=== PATIENT | female | born 1950 | race Caucasian/White ===

== ENCOUNTER 2017-04-26 11:41 | Inpatient (IN) | payer OTHER, MEDICAID ==
[~2017-04-26] VITALS: Ht 165.1 cm; Wt 162.1 kg
[2017-04-26] VITALS (8 sets, daily range): BP systolic 105–123; BP diastolic 59–66; PULSE 78–113; RESP 18–33; O2SAT 94–100
[~2017-04-26 11:41] MED LIST: ALBU8.5H2 INHALATION; AMLO5TAB2 PO; ATOR20TA PO; BECL8.7A6 IH; DIPH50C PO; DOCU250C2 PO; FLUT15.88 NS; GABA600T2 PO; INSU100I18 SUBQ; INSU100V7 SUBQ; LEVO750T39 PO; LISI10TA PO; MONT10TA23 PO; NORT50CA PO; OMEP20CA11 PO; RES15 PO; [UNRECOGNIZED DRUG - REMARK] PO
[2017-04-26] MEDS ORDERED: Polyethylene Glycol (PEG) 17 Gm Powder PO PRN (14:55)
[2017-04-26] MEDS ORDERED: Alum-Mag Hydrox-Simeth 30 mL Suspension PO PRN (14:55)
[2017-04-26] MEDS ORDERED: Dextrose 10% 250 ML IV PRN (15:05)
[2017-04-26] MEDS ORDERED: Glucose 40% Oral Gel 15 Gm Tube PO PRN (15:05)
[2017-04-26] MEDS ORDERED: Albuterol HFA 60 Puff 8 Gm Inhaler INHALATION PRN (15:05)
[2017-04-26] MEDS ORDERED: diphenhydrAMINE 25 mg Capsule PO PRN (15:05)
--- NOTE | 2017-04-26 15:10 | NUR ---
Admit Pt admitted to [facility] from [facility] at 1400. Vitals stable, A&Ox2, unknown date. All belongings brought with with the exception of dentures and glasses, pt states she had them at [facility] but they are not here with her belongings. Pt answers some questions appropriately but other questions she wont answer and seems to drift off. Tele placed and in NSR 80's. C/O back pain but tolerable. Multiple skin issues noted. MD's rounding and asked me to SL patient. PT unable to help much during transfer, took about 4 ppl to move her from the stretcher to the bed. Pt very fidgety in bed and unable to stay still. Admit completed but unsure of some of her answers. Will go over the admit if family shows up.
[2017-04-26] MEDS ORDERED: Albuterol-Ipratropium 3 mL Inhalation Solution NEB PRN (15:20)
--- NOTE | 2017-04-26 15:43 | ABG ---
DateTimeAnalyzed 15:36:03 -_ pH ____7.272 - 7.350 7.450 pCO2 ___75.8__ -mmHg 35.0 45.0 pO2 ___85.0__ -mmHg 69.0 116 HCO3- ___34.9__ -mmol/L 22.0 26.0 ABE ____7.2__ -mmol/L tHb ___11.0__ -g/dL O2Hb ___95.2__ -% COHb ____2.3__ -% 1.5 MetHb ____0.0__ -% sO2 ___97.4__ -% FIO2 ___21.0__ -% Drawn By btl - Date/Time Notified____ 15:42:00 -_ Liter_Flow ____2.00_ -L/min Oxygen Device 1 __CANNULA - Notified By btl - Notified Whom ___Dr. Mai - K+ ____6.4__ -mmol/L tO2 ___14.9__ -Vol% Napoleon test N/A -
[2017-04-26 16:05] LABS: BASOPHILS % (AUTO) 0.3 % (0-3); EOSINOPHILS % (AUTO) 2.8 % (0-5); MONOCYTES % (AUTO) 9.3 % (4-12); Mean Corpuscular Hemoglobin 27.8 pg (27.0-35.0); Mean Corpuscular Volume 94.5 fL (81-100); NEUTROPHILS % (AUTO) 72.5 % (40-74); Platelet Count 392 bil/L (150-400)
[2017-04-26 16:18] LABS: INR 1.06 ratio
[2017-04-26 16:26] LABS: Magnesium 1.7 mg/dL (1.6-2.6)
[2017-04-26] MEDS: Insulin Human REGular 300 Unit/3 mL Inj IV ONE ×2 (16:40→23:07)
[2017-04-26] MEDS ORDERED: Calcium GLUCO 10% (mEq) Inj 9.3 MEQ in Dextrose 5% 100 ML IV ONE (16:40)
[2017-04-26] MEDS ORDERED: DEXTROSE 10% IV ONE (16:40)
--- NOTE | 2017-04-26 16:46 | PCM.HPMED ---
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 The patient herself arrives acutely altered with poor recollection of recent events and provides very little useful history. Per HPI on transfer the patient was feeling gradually more fatigued in the days leading up to her admission on 04/24 when she fell resulting in upper extremity and chest abrasion and a deep abrasion of the right knee. Records from [facility] indicate that her Potassium upon presentation was 6.2 which decreased to 5.9 with medical therapy, only to rise again to 6.5 the following; which along with JAE with Cr 1.5 prompted them to request transfer to [facility] for further management. Of note the patient was noted to have a history of CHF with increased LE edema compare to baseline with respiratory difficulty, however she was maintained on NS @ 100 ml/hr with concurrent adequate PO intake of fluids and her diuretic was withheld; in addition the patient was anti-coagulated with Lovenox despite her super obesity and JAE. Review of Systems: Comprehensive ROS negative except as listed above in the HPI Allergies Coded Allergies: Penicillins (Verified Allergy, Severe, Anaphylaxis, 01/15/16) AFTER PCN SHOT CHILD morphine (Unverified Allergy, Intermediate, itching , 01/16/16) codeine (Verified Adverse Reaction, Intermediate, Itching, 01/15/16) Home Medications Unconfirmed Amlodipine 5 mg po Daily Lipitor 20 mg PO HS Beclomethasone 8.7 g IH daily PRN Insulin Lantus 85 U subQ HS Insulin Aspart 10 U subQ with meals with concurrent sliding scale Pamelor 50 mg PO hs Singulair 10 mg tablet PO daily Aspirin 81 mg PO daily Duloxetine 250 mg PO BID PRN Tylenol 650 mg PO Q6 PRN Albuterol 2 puffs inh Q4 PRN Lisinopril 10 mg PO daily . PMH Asthma Hyperlipidemia HTN GERD Super morbid obesity DM2 with neuropathy RBBB Osteo arthritis obesity hypoventilation syndrome Family History Father of [place] age 58 Mother of brain bleed 47 Lives with her sister who is relatively healthy Social History Hx Alcohol Use: Yes (quit 30 years ago) Hx Substance Use: No Hx Tobacco Use: Yes (quit 30 years ago) Smoking Status: Former Smoker Living Arrangement: with Family Exam Vital Signs Vital Sign - Last Date Time Temp Pulse Resp B/P Pulse Ox O2 Delivery O2 Flow Rate FiO2 04/26/17 14:25 85 Exam Gen: Patient somnolent and oriented only to self, morbidly obese Neck: Large Bull neck, difficult to determine JVD given habitus, supple, non tender, no lymphadenopathy HEENT: PERRL, EOMI, no scleral icterus, no conjunctival pallor, mucous membranes moist Skin: multiple bruises and abrasions, all appear to be in similar stages of healing implying a singular event, large eschar over right knee with some surrounding erythema CV: very distant heart tones, RRR, 2/6 systolic ejection murmur, no rubs or gallops Lungs: Very distant lung sounds, perhaps bibasilar crackles but difficult to be sure given habitus and inability to turn to posterior auscultation Abdomen: Soft, very obese, non tender, cannot appreciate bowel tones complicated by habitus, erythema and white exudate under prodigious panniculus Extr: BL LE non pitting edema, as above many abrasion in similar stages of healing Neuro: CN 2-12 grossly intact, no focal neurologic deficit, patient is altered Psych: Patient with flat affect and somnolence Assessment & Plan Adilia Garcia is a 66 year old super morbid obese woman presenting as a direct admission from [facility] for hyperkalemia, JAE, and likely CHF exacerbation. Upon presentation she is acutely altered with ABG revealing respiratory acidosis likely secondary to obesity hypoventilation syndrome with underlying asthma. There was some suggestion of chest pain upon presentation, [facility], ECG reassuring per [facility] records. Acute encephalopathy, poa. Active -Likely secondary to hypercapnic respiratory failure likely -ABG as above -Initiate Bpap to respiratory support -Will contact family to establish cognitive baseline -Swallow evaluation Acute hypercapnic respiratory failure, POA, acute on chronic. Active -As above likely secondary to pickwikian physiology -Bpap as above -Continue to monitor saturation -DuoNeb Q4 PRN COPD, POA, chronic. Active -Duoneb as above -Montelukast 10 mg PO daily -Bpap as above Hyperkalemia, POA, chronicity uncertain. Active -Kayexalate -Calcium gluconate -Insulin IV and D10 -Repeat BMP Q4 -Lasix as above will encourage K excretion -Consider Nephrology consult if electrolytes fail to improve Heart failure with preserved ejection fraction, POA, chronic. Active -Lasix 40 mg IV BID -Stopped IV fluids running on transfer -Recent ECHO reveals EF 55%, no wall motion abnormalities, no valvular pathology , diastolic dysfunction Diabetes mellitus with peripheral neuropathy, POA, chronic. Active -Lantus 85 U QHS home dosage reduced to 70 U QHS due to likely greatly reduced PO intake -Lispro 10U with meals -Lispro medium dose sliding scale -A1c 7.2 per [place] records -Gabapentin 600 mg PO tid Acute Kidney injury, POA. Active -Avoid Nephrotoxic medications -Continue to track BUN/Cr -Continue to monitor electrolytes Super Morbid Obesity, POA, chronic. Active -Bariatric bed -Jose lift -Multiple person assist for any turns, moves, lifts, or transfers -Nystatin powder under panniculus -Diphenhydramine 50 mg PO PRN for itching HTN, POA, Chronic. Active -Lisinopril 10 mg PO daily begin tomorrow AM -Amlodipine 5 mg PO daily Begin tomorrow AM -Lasix as above Depression and anxiety, POA, chronic. Active -Continue home Nortriptyline 50 mg PO hs -Continue home Temazepam 15 mg PO HS PRN GERD, POA, chronic. Active -Protonix 40 mg PO BID Multiple bruises and abrasions, POA, acute. Active -Multiple bruises and abrasions appear to be at roughly similar stages of healing suggestive of a singular trauma consistent with history of fall -Neosporin applied to open abrasion -Continue to observe large eschar on Right knee with low threshold to start antibiotics Disposition: Inpatient, anticipated length of stay > 2 midnights due to severity of condition and complexity of treatment plan Pain Evaluation: Adequate Pain Control GI Prophylaxis: H2 abraham VTE Prophylaxis: Sub-Q Heparin (Unfractionated) Resuscitation Status: CPR: Attempt Resuscitation Attending Statement The patient was seen and examined together with Dr. Mai on 04/26/2017 and I agree with the history, exam and plan as outlined in the note above. . copies to: Sheyla Rosario David E DO Apr 26, 2017 15:24 Fernie Mishra MD Apr 27, 2017 16:33
--- NOTE | 2017-04-26 16:57 | NUR ---
Respiratory Called to room to do a breathing Tx, found Pt had removed BIPAP mask. Pt is refusing to use bipap. Still says "I can't breath". RT tried to explain what bipap is and what the next step, intubation is and if she would like that to happen. No meaningful response was given. Pt does not seem to be a reliable source of information at this time. Rt tried again during note to get Pt to wear bipap, again refused.
[2017-04-26] MEDS: Insulin LISPRO 300 Unit/3 mL Inj SUBQ SCH ×3 (17:00→21:50)
[2017-04-26] MEDS: Furosemide 10 mg/mL 4 mL Inj IVPUSH SCH (17:21)
[2017-04-26] MEDS: Heparin 5,000 Unit/mL Inj SUBQ SCH ×2 (17:21→23:11)
[2017-04-26] MEDS: Nystatin 100,000 Unit/Gm 15 Gm Powder TOPICAL SCH ×2 (17:27→20:30)
[2017-04-26] MEDS: Neomycin-Bacitracin-Polymyxin 15 Gm Ointment TOPICAL SCH (19:33)
--- NOTE | 2017-04-26 19:37 | DRSVH ---
PROCEDURE: X-RAY CHEST ONE VIEW, PORTABLE ([id number]) INDICATIONS: CONGESTIVE HEART FAILURE TECHNIQUE: One view of the chest was acquired. COMPARISON: [facility], CR, XR CHEST 1VW (PORTABLE), 01/15/2016, 19:24. [facility], CT, CT ANGIO CHEST PE, 01/15/2016, 22:44. FINDINGS: Surgical changes and devices: None. Lungs and pleura: No pleural effusions or pneumothorax. Lungs are abnormal with reduced inspiratory volume. Suspect mild pulmonary edema. Mediastinum: Mediastinal contours appear abnormal with prominence of the central pulmonary vessels a s was previously the case. Heart size is normal. Bones and chest wall: No suspicious bony lesions. Overlying soft tissues appear unremarkable. IMPRESSION: Large body habitus reduced inspiratory volume, prominence of the central pulmonary vesse ls. A definite acute disease is not found. Quality of visualization, however, is relatively limited . Suspect mild pulmonary edema. Dictated by: Jonathan Lambert M.D. on 04/26/2017 at 19:34 Approved by: Jonathan Lambert M.D. on 04/26/2017 at 19:36
[2017-04-26] MEDS: Fluticasone 100 mCg Inhaler INHALATION SCH (20:29)
[2017-04-26] MEDS: Albuterol 2.5 mg/3 mL Inhalation Solution NEB SCH (20:30)
[2017-04-26] MEDS ORDERED: Insulin GLARgine 100 Unit/mL Syringe SUBQ SCH (21:00)
[2017-04-26] MEDS ORDERED: Albuterol 0.5% (5mg/mL) 20 mL Inhalation Solution NEB ONE (21:00)
[2017-04-27] VITALS (11 sets, daily range): BP systolic 115–143; BP diastolic 65–85; PULSE 85–105; RESP 16–20; O2SAT 90–99
[2017-04-27] MEDS: Albuterol 2.5 mg/3 mL Inhalation Solution NEB SCH ×2 (00:21→04:43)
--- NOTE | 2017-04-27 04:49 | NUR ---
Restless / Anxious / Hypoglycemia / Bi-PAP / Tele Pt very restless, figity and impulsive, Pt pulling Bi-PAP mask off frequently. MD notified and no new orders at this time, no sitter available. Blood glucose at HS was 134, MD called before giving HS dose of Lantus 70 units administered. IV D10W infusing at 10 mls /hour. AM blood glucose check was 42, one Amp D50 given, and follow up blood glucose was 120, MD is aware . Bi-PAP started out at 50% O2 and was able to be weaned down to 35% O2 this AM with O2 sats 94-95% per continuous pulse oximetry. No c/o chest pain, Tele SR-ST with IVCD and occ PVCs, with HR 80s to 110s overnight.
[2017-04-27 05:32] LABS: BASOPHILS % (AUTO) 0.1 % (0-3); EOSINOPHILS % (AUTO) 3.4 % (0-5); MONOCYTES % (AUTO) 11.4 % (4-12); Mean Corpuscular Hemoglobin 27.5 pg (27.0-35.0); Mean Corpuscular Volume 94.2 fL (81-100); NEUTROPHILS % (AUTO) 70.2 % (40-74); Platelet Count 323 bil/L (150-400)
[2017-04-27 05:51] LABS: INR 1.06 ratio
[2017-04-27 05:56] LABS: Magnesium 1.5 mg/dL (1.6-2.6); Phosphorus 4.9 mg/dL (2.5-4.9)
[2017-04-27] MEDS ORDERED: DIPH25CA6 PO (07:01)
[2017-04-27] MEDS: Insulin LISPRO 300 Unit/3 mL Inj SUBQ SCH ×5 (07:30→21:37)
--- NOTE | 2017-04-27 08:36 | DRSVH ---
PROCEDURE: X-RAY CHEST ONE VIEW, PORTABLE ([id number]) INDICATIONS: chf TECHNIQUE: One view of the chest was acquired. COMPARISON: [facility], CR, XR CHEST 1VW (PORTABLE), 04/26/2017, 18:54. FINDINGS: Surgical changes and devices: None. Lungs and pleura: No pleural effusions or pneumothorax. Mild cephalization of the pulmonary vasculat ure consistent with CHF. Mediastinum: Mediastinal contours appear normal. Heart size is normal. Bones and chest wall: No suspicious bony lesions. Overlying soft tissues appear unremarkable. IMPRESSION: Cephalization of pulmonary vasculature consistent with CHF. Dictated by: Elise Herrera MD, PhD on 04/27/2017 at 8:33 Approved by: Elise Herrera MD, PhD on 04/27/2017 at 8:34
[2017-04-27] MEDS: Pantoprazole 40 mg ER24 Tablet PO SCH (09:27)
[2017-04-27] MEDS: Furosemide 10 mg/mL 4 mL Inj IVPUSH SCH ×2 (09:27→20:15)
[2017-04-27] MEDS: Fluticasone 100 mCg Inhaler INHALATION SCH ×2 (09:27→19:56)
[2017-04-27] MEDS: Heparin 5,000 Unit/mL Inj SUBQ SCH ×2 (09:28→16:50)
[2017-04-27] MEDS: Nystatin 100,000 Unit/Gm 15 Gm Powder TOPICAL SCH ×2 (09:28→19:55)
[2017-04-27] MEDS: Neomycin-Bacitracin-Polymyxin 15 Gm Ointment TOPICAL SCH (09:29)
--- NOTE | 2017-04-27 11:15 | NUR ---
Blood Glucose Blood sugar this am was 55. With held the am dose of Insulin and sliding scale dosage. Pt ate all her breakfast. Will recheck BG now before lunch and will continue to monitor.
--- NOTE | 2017-04-27 11:19 | NUR ---
O2 needs Pt came off Bipap to eat breakfast to eat and sats stayed around 88-90, sometimes would drop to 83 when chewing. Placed back on bipap after breakfast. MD's rounded and took of Bipap and placed on NC 3L and remained low 90's. Worked with PT and after getting back into bed pt was pretty fatigued and couldn't keep her sats up above 80's on NC 5L. Pt placed back on bipap and resting comfortably at 97%.
--- NOTE | 2017-04-27 11:36 | NUR ---
Evaluation completed. Please go to "Notes" then click on "Assessments and Notes" (bottom left corner of screen). Then select appropriate discipline tab on top of screen.
--- NOTE | 2017-04-27 11:54 | NUR ---
Social Work Note: Initial Assessment Data& Assessment: EMR reviewed. SW met with pt at bedside to discuss discharge planning, SW role explained. SW phone number provided on pt white board. Adilia Garcia is a 66 year old female admitted on 04/26/2017 for hyperkalemia. Pt has [employer] and [facility] Medicaid insurance coverage. Pt sees Sheyla LOO for primary care. Pt lives in [place] with her sister Kisha ([phone]) and ambulates with a 4WW at baseline when inside of her home. Per PT, pt uses an electric wheelchair when outside of her home. Pt uses 2L of oxygen at baseline with [facility], but is currently using 4-5L. Pt is also currently a 2PA. Pt states she has never had Home Health services before but has spent 10 months at [facility] a few years ago and lived at [facility] for four years prior to living with her sister in [place]. Pt currently is open with [facility] with [facility], [facility], H&P faxed. Pt also states that she is with [facility] and has caregiving from 8am-10am daily to help her get ready for the day as well 6-8p.m. daily to help her get ready for bed. These aids come again on Tuesdays and from 1-3p.m in the afternoon time additionally. Pt is otherwise independent with her ADL's. Pt is open with [employer] and uses this program as her primary transport. Pt has used her transportation benefit under her [facility] in the past and plans to use this benefit again at time of discharge to get home. Pt does not have LTC insurance or VA benefits. Pt did accept DPOA/Advance Directive paperwork to review and complete when possible. Pt denies any other needs at this time. SW to continue to follow for MD orders and if any needs arise. Plan: Anticipated discharge home via [facility] transportation when medically ready with resume [facility] and [facility] caregiving. Pt denies any other needs at this time. SW to continue to follow for MD orders and if any needs arise. ELLIOT Newell Addendum: 04/27/17 at 1211 by AMIRA THAYER Amended: Links added.
--- NOTE | 2017-04-27 12:20 | PCM.PNMED ---
Subjective Date of Service Apr 27, 2017 Subjective The patient is much more alert and cogent today, she was initially on Bpap which was removed to facilitate better communication, she has not complaints beyond her baseline pain and increased SOB compared to baseline. A rosemarie discussion about diet modification and weight loss was initiated and the patient appeared receptive to aggressive dietary intervention given the rather grim prognosis should she fail to make significant changes to her lifestyle. No overnight events beyond some reorientation to the importance of Bpap. Comprehensive ROS negative except as listed above. Exam Vital Signs Vital Sign - Last Date Time Temp Pulse Resp B/P Pulse Ox O2 Delivery O2 Flow Rate FiO2 04/27/17 10:34 85 04/27/17 09:54 CPAP/BIPAP 04/27/17 09:49 37.0 19 143/81 98 35 04/26/17 15:50 4.00 Intake and Output 04/26/17 04/26/17 04/27/17 Cumulative From/Thru 15:00 23:00 07:00 04/26/17 14:58 - 04/27/17 06:19 Intake Total 484 ml 484 ml Output Total 600 ml 2425 ml 3025 ml Balance -600 ml -1941 ml -2541 ml Intake Oral 200 ml 200 ml IV Total 284 ml 284 ml Output Urine Total 600 ml 2425 ml 3025 ml Exam Gen: A/O x3, morbidly obese woman in NAD Neck: Large Bull neck, difficult to determine JVD given habitus, supple, non tender, no lymphadenopathy HEENT: PERRL, EOMI, no scleral icterus, no conjunctival pallor, mucous membranes moist Skin: multiple bruises and abrasions, all appear to be in similar stages of healing implying a singular event, large eschar over right knee with some surrounding erythema CV: very distant heart tones, RRR, 2/6 systolic ejection murmur, no rubs or gallops Lungs: Very distant lung sounds, perhaps bibasilar crackles but difficult to be sure given habitus and inability to turn to posterior auscultation Abdomen: Soft, very obese, non tender, cannot appreciate bowel tones complicated by habitus, erythema and white exudate under prodigious panniculus Extr: BL LE non pitting edema, as above many abrasion in similar stages of healing Neuro: CN 2-12 grossly intact, no focal neurologic deficit, patient is altered Psych: Much more engaged with conversation today, expresses willingness to attempt aggressive dietary modification IVs and Medications Medications Reviewed: Medications were reviewed in detail Lab and Diagnostics Item Value Date Time Red Blood Count 3.78 mil/mm3 L 04/27/17 05 Mean Corpuscular Volume 94.2 fL 04/27/17 05 Mean Corpuscular Hemoglobin 27.5 pg 04/27/17 05 Mean Corpuscular Hemoglobin Concent 29.2 % L 04/27/17 05 Red Cell Distribution Width 14.7 % 04/27/17 05 Neutrophils (%) (Auto) 70.2 % 04/27/17 05 Lymphocytes (%) (Auto) 14.8 % 04/27/17 05 Monocytes (%) (Auto) 11.4 % 04/27/17 05 Eosinophils (%) (Auto) 3.4 % 04/27/17 05 Basophils (%) (Auto) 0.1 % 04/27/17 05 Estimat Glomerular Filtration Rate 53 mL/min 04/27/17 05 Calcium Level 9.0 mg/dL 04/27/17 05 Phosphorus Level 4.9 mg/dL 04/27/17 05 Magnesium Level 1.5 mg/dL L 04/27/17 05 Total Bilirubin 0.3 mg/dL 04/27/17 05 Aspartate Amino Transf (AST/SGOT) 15 U/L 04/27/17 0510 Alanine Aminotransferase (ALT/SGPT) 10 U/L 04/27/17 0510 Alkaline Phosphatase 96 U/L 04/27/17 05 Total Protein 6.2 g/dL L 04/27/17 0510 Albumin 3.1 g/dL L 04/27/17 0510 Prothrombin Time 11.4 sec 04/27/17 05 Prothromb Time International Ratio 1.06 ratio 04/27/17 0510 Result Diagram: 04/27/17 0504/27/17 05 X-Rays, CTs and MRIs X-RAY CHEST ONE VIEW, PORTABLE IMPRESSION: Cephalization of pulmonary vasculature consistent with CHF. Dictated by: Elise Herrera MD, PhD on 04/27/2017 at 8:33 Approved by: Elise Herrera MD, PhD on 04/27/2017 at 8:34 . Assessment & Plan Adilia Garcia is a 66 year old super morbid obese woman presenting as a direct admission from [facility] for hyperkalemia, JAE, and likely CHF exacerbation. Upon presentation she is acutely altered with ABG revealing respiratory acidosis likely secondary to obesity hypoventilation syndrome with underlying asthma. There was some suggestion of chest pain upon presentation, serial trops negative per [place] records, ECG reassuring per transfer records. Patient is much more alert and cogent compared to yesterday, as above a rosemarie discussion about aggressive dietary modification with low calorie very low card diet was well received. Acute encephalopathy, poa. Improved -Likely secondary to hypercapnic respiratory failure likely -ABG as above -Initiate Bpap to respiratory support -Will contact family to establish cognitive baseline -Swallow evaluation Acute hypercapnic respiratory failure, POA, acute on chronic. Improved -As above likely secondary to pickwikian physiology -Bpap as above -Continue to monitor saturation -DuoNeb Q4 PRN COPD, POA, chronic. Active -Duoneb as above -Montelukast 10 mg PO daily -Bpap as above Hyperkalemia, POA, chronicity uncertain. Improved -Kayexalate given to good effect, will give 1 more dose today and then DC pending FU labs -Calcium gluconate given once -Insulin IV and D10 given once -Repeat BMP Q4 on day of admit -Lasix as above will encourage K excretion -Consider Nephrology consult if electrolytes fail to improve Heart failure with preserved ejection fraction, POA, chronic. Active -Lasix 40 mg IV BID -Stopped IV fluids running on transfer -Recent ECHO reveals EF 55%, no wall motion abnormalities, no valvular pathology , diastolic dysfunction Diabetes mellitus with peripheral neuropathy, POA, chronic. Active -Lantus 85 U QHS home dosage reduced to 40 U QHS due to likely greatly reduced PO intake -Lispro 5U with meals -Lispro medium dose sliding scale -[facility] -Gabapentin 600 mg PO tid -Patient was transitioned to low calorie very low carb diet to begin comprehensive lifestyle changes aimed at weight loss and glycemic control Acute Kidney injury, POA. Active -Avoid Nephrotoxic medications -Continue to track BUN/Cr -Continue to monitor electrolytes Super Morbid Obesity, POA, chronic. Active -Bariatric bed -Jose lift -Multiple person assist for any turns, moves, lifts, or transfers -Nystatin powder under panniculus -Diphenhydramine 50 mg PO PRN for itching -Dietary modifications as above HTN, POA, Chronic. Active -Lisinopril 10 mg PO daily begin tomorrow AM -Amlodipine 5 mg PO daily Begin tomorrow AM -Lasix as above Depression and anxiety, POA, chronic. Active -Continue home Nortriptyline 50 mg PO hs -Continue home Temazepam 15 mg PO HS PRN GERD, POA, chronic. Active -Protonix 40 mg PO BID Multiple bruises and abrasions, POA, acute. Active -Multiple bruises and abrasions appear to be at roughly similar stages of healing suggestive of a singular trauma consistent with history of fall -Neosporin applied to open abrasion -Continue to observe large eschar on Right knee with low threshold to start antibiotics Disposition: Patient responding well to medical treatment, will likely be able to DC back to living with her sister early next week Pain Evaluation: Adequate Pain Control GI Prophylaxis: H2 abraham VTE Prophylaxis: Sub-Q Heparin (Unfractionated) Resuscitation Status: CPR: Attempt Resuscitation Attending Statement The patient was seen and examined together with Dr. Mai on 04/27/2017 and I agree with the history, exam and plan as outlined in the note above. . Aquilino Mai DO Apr 27, 2017 12:20 Fernie Mishra MD Apr 27, 2017 16:32
[2017-04-27] MEDS ORDERED: Insulin LISPRO 300 Unit/3 mL Inj SUBQ SCH ×2 (17:00)
[2017-04-27] MEDS: Insulin GLARgine 100 Unit/mL Syringe SUBQ SCH (21:00)
[2017-04-28] VITALS (13 sets, daily range): BP systolic 112–152; BP diastolic 70–85; PULSE 79–107; RESP 16–20; O2SAT 94–98
[2017-04-28] MEDS: Heparin 5,000 Unit/mL Inj SUBQ SCH ×4 (00:44→23:53)
[2017-04-28 02:46] LABS: BASOPHILS % (AUTO) 0.3 % (0-3); EOSINOPHILS % (AUTO) 4.2 % (0-5); Mean Corpuscular Volume 90.4 fL (81-100); NEUTROPHILS % (AUTO) 73.1 % (40-74); Platelet Count 344 bil/L (150-400)
[2017-04-28 03:01] LABS: INR 1.07 ratio
[2017-04-28 03:11] LABS: Phosphorus 4.1 mg/dL (2.5-4.9)
[2017-04-28 03:35] LABS: Magnesium 1.1 mg/dL (1.6-2.6)
[2017-04-28] MEDS: Ondansetron 2 mg/mL 2 mL Inj IVPUSH PRN ×2 (03:57→23:53)
[2017-04-28] MEDS ORDERED: Magnesium Sulf 4 Gm/100 mL H2O 4 GM in IV Premix 1 EACH IV ONE (04:15)
[2017-04-28] MEDS: Pantoprazole 40 mg ER24 Tablet PO SCH (05:41)
[2017-04-28] MEDS ORDERED: 0.9% Sodium Chloride 250 ML ONE (06:34)
--- NOTE | 2017-04-28 07:12 | NUR ---
Nausea/tele/output/Mag Pt c/o nausea and Zofran 4mg IVP given with effectiveness per pt. Tele: SR hr 85 with PAC per auto electrical technician. Denies shortness of breath, chest pain/pressure and general pain. Lasix 40mg IVP given with 3700ml output noted. No s/sx of dehydration. Mag rider given for mg level 1.1. Lab to redraw as ordered. Care ongoing.
[2017-04-28] MEDS: Insulin LISPRO 300 Unit/3 mL Inj SUBQ SCH ×4 (09:22→21:53)
[2017-04-28] MEDS: Fluticasone 100 mCg Inhaler INHALATION SCH ×2 (09:22→20:51)
[2017-04-28] MEDS: Furosemide 10 mg/mL 4 mL Inj IVPUSH SCH ×2 (09:23→20:51)
[2017-04-28] MEDS: Fluticasone 0.05% 15 Spray/2 Gm 16 Gm Nasal Spray NASAL PRN (09:23)
[2017-04-28] MEDS: NEOMY/BACITRA/POLYMYX OINT 1 PACKET/0.9 GM PACKET TOPICAL SCH (09:24)
[2017-04-28] MEDS: Nystatin 100,000 Unit/Gm 15 Gm Powder TOPICAL SCH ×2 (09:24→20:51)
--- NOTE | 2017-04-28 12:10 | PCM.PNMED ---
Subjective Date of Service Apr 28, 2017 Subjective Overnight: Other than Zofran the patient did well. No shortness of breath, chest pain. Patient does not wear BiPAP effectively This morning patient states she is feeling better and is cognizant and conversant. Today was done to explain patient's condition. She denies chest pain, shortness of breath, nausea, vomiting, or the review of systems. Patient has not been getting out of bed Exam Vital Signs Vital Sign - Last Date Time Temp Pulse Resp B/P Pulse Ox O2 Delivery O2 Flow Rate FiO2 04/28/17 10:11 100 04/28/17 09:47 Supplement Oxygen CPAP/BIPAP 04/28/17 09:16 36.8 16 134/81 97 3.00 04/28/17 05:08 35 Intake and Output 04/27/17 04/27/17 04/28/17 Cumulative From/Thru 15:00 23:00 07:00 04/26/17 14:58 - 04/28/17 06:13 Intake Total 1155 ml 250 ml 1889 ml Output Total 3700 ml 3700 ml 58916 ml Balance -2545 ml -3450 ml -8536 ml Intake Oral 1036 ml 250 ml 1486 ml IV Total 119 ml 403 ml Output Urine Total 3700 ml 3700 ml 45243 ml Exam General: Patient awake and alert. Severely morbidly obese Cardio: Regular rate and rhythm with distant murmur Respiratory: CTA bilaterally but lung sounds are distant and difficult to appreciate excellent Abdomen: Benign, super obese, bowel sounds distant Extremities: Mild to moderate nonpitting edema of the lower extremities bilaterally; patient has sporadic wounds were different stages of healing, right knee is wrapped with gauze in place Psych: Patient awake and alert appropriate mood and affect Neurological appears grossly intact IVs and Medications Medications Reviewed: Medications were reviewed in detail Lab and Diagnostics Result Diagram: 04/28/17 0203 04/28/17 0203 X-Rays, CTs and MRIs X-RAY CHEST ONE VIEW, PORTABLE IMPRESSION: Cephalization of pulmonary vasculature consistent with CHF. Dictated by: Elise Herrera MD, PhD on 04/27/2017 at 8:33 Approved by: Elise Herrera MD, PhD on 04/27/2017 at 8:34 . Assessment & Plan Adilia Garcia is a 66 year old super morbid obese woman presenting as a direct admission from [facility] for hyperkalemia, JAE, and likely CHF exacerbation. Upon presentation she is acutely altered with ABG revealing respiratory acidosis likely secondary to obesity hypoventilation syndrome with underlying asthma. There was some suggestion of chest pain upon presentation, serial trops negative per [facility] records, ECG reassuring per transfer records. Patient is much more alert and cogent compared to yesterday, as above a rosemarie discussion about aggressive dietary modification with low calorie very low card diet was well received. Acute encephalopathy, poa. Improved -Likely second to hypercapnic respiratory failure secondary to obesity hypoventilation -When necessary and at night Bpap Acute on chronic hypercapnic respiratory failure with underlying COPD, POA, acute on chronic. Improved -As above likely secondary to pickwikian physiology; patient also has heart failure that is exacerbating this issue -Bpap as above -Continue to monitor saturation -DuoNeb Q4 PRN -Montelukast 10 mg PO daily Heart failure with preserved ejection fraction, POA, chronic. Active -ECHO 01/16/16 reveals EF 55%, no wall motion abnormalities, no valvular pathology, diastolic dysfunction -Lasix 40 mg IV BID -Stopped IV fluids running on transfer -We will consider additional echo if she becomes decompensated; recommend follow -up echo outpatient Hyperkalemia, POA, chronicity uncertain. Resolved -Treated using protocol with Lasix, albuterol, insulin, and Kayexalate Diabetes mellitus with peripheral neuropathy, POA, chronic. Active -Lantus 85 U QHS home dosage reduced to 40 U QHS due to likely greatly reduced PO intake; A1c 7.2 per [facility] records -Lispro 5U with meals; Lispro medium dose sliding scale -Gabapentin 600 mg PO tid -Patient was transitioned to low calorie very low carb diet to begin comprehensive lifestyle changes aimed at weight loss and glycemic control Acute Kidney injury, POA. Resolving -Avoid Nephrotoxic medications -Continue to track BUN/Cr -Continue to monitor electrolytes Super Morbid Obesity, POA, chronic. Active -Bariatric bed -Jose lift -Multiple person assist for any turns, moves, lifts, or transfers -Nystatin powder under panniculus -Diphenhydramine 50 mg PO PRN for itching -Dietary modifications as above -Physical therapy ordered for 04/28/17 -Swallow evaluation; ordered and pending HTN, POA, Chronic. Active -Lisinopril 10 mg PO daily begin tomorrow AM -Amlodipine 5 mg PO daily Begin tomorrow AM -Lasix as above Depression and anxiety, POA, chronic. Active -Continue home Nortriptyline 50 mg PO hs -Continue home Temazepam 15 mg PO HS PRN GERD, POA, chronic. Active -Protonix 40 mg PO BID Multiple bruises and abrasions, POA, acute. Active -Multiple bruises and abrasions appear to be at roughly similar stages of healing suggestive of a singular trauma consistent with history of fall -Neosporin applied to open abrasion -Continue to observe large eschar on Right knee with low threshold to start antibiotics Disposition: Possible discharge tomorrow Pain Evaluation: Adequate Pain Control GI Prophylaxis: H2 abraham VTE Prophylaxis: Sub-Q Heparin (Unfractionated) Resuscitation Status: CPR: Attempt Resuscitation Attending Statement The patient was seen and examined together with Dr. Huang on 04/28/2017 and I agree with the history, exam and plan as outlined in the note above. . Jim Huang DO Apr 28, 2017 12:10 Fernie Mishra MD Apr 29, 2017 09:02
--- NOTE | 2017-04-28 13:53 | NUR ---
Evaluation completed. Please go to "Notes" then click on "Assessments and Notes" (bottom left corner of screen). Then select appropriate discipline tab on top of screen.
--- NOTE | 2017-04-28 18:41 | NUR ---
Activity Patient transferred to chair 2 PA assist with FWW. Up in chair most of shift. Maintained SPO2 high 90s on 3 L NC throughout day. VSS. Denies pain/discomfort. Call light within reach.
[2017-04-28] MEDS: Insulin GLARgine 100 Unit/mL Syringe SUBQ SCH (21:56)
[2017-04-29] VITALS (9 sets, daily range): BP systolic 106–176; BP diastolic 39–83; PULSE 76–98; RESP 14–22; O2SAT 92–99
[2017-04-29 03:13] LABS: BASOPHILS % (AUTO) 0.2 % (0-3); Mean Corpuscular Hemoglobin 27.6 pg (27.0-35.0); Mean Corpuscular Volume 90.9 fL (81-100); NEUTROPHILS % (AUTO) 73.2 % (40-74); Platelet Count 350 bil/L (150-400)
--- NOTE | 2017-04-29 06:12 | NUR ---
NOC PT slept well all night with bi pap on. TOlerated well. PT has been diuresing well with light yellow urine per rios. Nystatin applied to groin. Bruises monitored r/t her fall before admit. PT c/o pain once and was given tylenol with good relief. PT on tele in sinus rhythm with rate 80-90's. BG 124 at HS. PT remains edematous from mid waist down. PT reports her edema feels improved. Will continue with current POC and monitor.
[2017-04-29] MEDS: Pantoprazole 40 mg ER24 Tablet PO SCH ×2 (06:33→08:47)
[2017-04-29] MEDS: Insulin LISPRO 300 Unit/3 mL Inj SUBQ SCH ×4 (08:00→21:10)
[2017-04-29] MEDS: Heparin 5,000 Unit/mL Inj SUBQ SCH ×2 (08:46→16:22)
[2017-04-29] MEDS: Furosemide 10 mg/mL 4 mL Inj IVPUSH SCH (08:46)
[2017-04-29] MEDS: Fluticasone 0.05% 15 Spray/2 Gm 16 Gm Nasal Spray NASAL PRN (08:47)
[2017-04-29] MEDS: Nystatin 100,000 Unit/Gm 15 Gm Powder TOPICAL SCH ×2 (08:48→21:05)
[2017-04-29] MEDS: Fluticasone 100 mCg Inhaler INHALATION SCH ×2 (08:48→21:08)
[2017-04-29] MEDS: NEOMY/BACITRA/POLYMYX OINT 1 PACKET/0.9 GM PACKET TOPICAL SCH (08:49)
[2017-04-29] MEDS: Ondansetron 2 mg/mL 2 mL Inj IVPUSH PRN ×2 (12:04→21:11)
[2017-04-29] MEDS ORDERED: Furosemide 10 mg/mL 4 mL Inj IVPUSH SCH (16:30)
--- NOTE | 2017-04-29 16:37 | NUR ---
Wound note 66 yo female admitted to [facility] with hyperkalemia. Presents with a rug burn at her right knee that is 5 cm x 6.5 cm x 0.1 cm with a halo of erythema extending 6 cms beyond the wound circumferentially, wound is covered with a fibrin coat or eschar and drains minimal serosangiunous drainage. wound was cleaned with saline and gauze, wound presents like a burn, recommend silvadene ointment to the wound bid, cover with gauze and tape change BID. Of note pt recently stubbed her 5th toe on walker developing bleeding under the nail, this can be treated with a bandaid. Wound to recheck on this patient in 48 hours.
--- NOTE | 2017-04-29 17:41 | PCM.PNMED ---
Subjective Date of Service Apr 29, 2017 Subjective The patient states that her breathing and LE edema are much improved compared to admission. She states that her new restrictive diet is quite unpalatable; but that she is committed to attempting to radically reform her eating habits. She denies chest pain, abdominal pain, nausea, diarrhea, or constipation. Comprehensive ROS negative except as listed above. Exam Vital Signs Vital Sign - Last Date Time Temp Pulse Resp B/P Pulse Ox O2 Delivery O2 Flow Rate FiO2 04/29/17 16:27 36.6 85 22 130/73 96 Nasal Cannula 2.00 04/29/17 05:01 45 Intake and Output 04/28/17 04/28/17 04/29/17 Cumulative From/Thru 15:00 23:00 07:00 04/26/17 14:58 - 04/29/17 05:03 Intake Total 640 ml 480 ml 3009 ml Output Total 1350 ml 2200 ml 49153 ml Balance -710 ml -1720 ml -75214 ml Intake Oral 640 ml 480 ml 2606 ml IV Total 403 ml Output Urine Total 1350 ml 2200 ml 23641 ml # Bowel Movements 0 0 Exam Gen: A/O x3, morbidly obese woman in NAD Neck: Large Bull neck, difficult to determine JVD given habitus, supple, non tender, no lymphadenopathy HEENT: PERRL, EOMI, no scleral icterus, no conjunctival pallor, mucous membranes moist Skin: multiple bruises and abrasions, all appear to be in similar stages of healing implying a singular event, large eschar over right knee with some surrounding erythema, with bandage in place CV: very distant heart tones, RRR, 2/6 systolic ejection murmur, no rubs or gallops Lungs: Very distant lung sounds, CTA BL as best as can be determined Abdomen: Soft, very obese, non tender, cannot appreciate bowel tones complicated by habitus, erythema and white exudate under prodigious panniculus Extr: BL LE non pitting edema improved since prior exam, as above many abrasion in similar stages of healing Neuro: CN 2-12 grossly intact, no focal neurologic deficit Psych: appropriate mood and affect with self deprecating humor IVs and Medications Medications Reviewed: Medications were reviewed in detail Lab and Diagnostics Item Value Date Time Red Blood Count 4.38 mil/mm3 04/29/17 0207 Mean Corpuscular Volume 90.9 fL 04/29/17206 Mean Corpuscular Hemoglobin 27.6 pg 04/29/17206 Mean Corpuscular Hemoglobin Concent 30.4 % L 04/29/17206 Red Cell Distribution Width 14.4 % 04/29/17206 Neutrophils (%) (Auto) 73.2 % 04/29/17206 Lymphocytes (%) (Auto) 13.2 % L 04/29/17206 Monocytes (%) (Auto) 10.0 % 04/29/17206 Eosinophils (%) (Auto) 3.0 % 04/29/17206 Basophils (%) (Auto) 0.2 % 04/29/17206 Estimat Glomerular Filtration Rate 84 mL/min 04/29/17206 Calcium Level 9.2 mg/dL 04/29/17206 Total Bilirubin 0.5 mg/dL 04/29/17206 Aspartate Amino Transf (AST/SGOT) 17 U/L 04/29/17206 Alanine Aminotransferase (ALT/SGPT) 10 U/L 04/29/17206 Alkaline Phosphatase 101 U/L 04/29/17206 Total Protein 6.7 g/dL 04/29/17206 Albumin 3.4 g/dL 04/29/17206 Procalcitonin 0.24 ng/mL H 04/29/17206 Result Diagram: 04/29/1720604/29/17206 X-Rays, CTs and MRIs X-RAY CHEST ONE VIEW, PORTABLE IMPRESSION: Cephalization of pulmonary vasculature consistent with CHF. Dictated by: Elise Herrera MD, PhD on 04/27/2017 at 8:33 Approved by: Elise Herrera MD, PhD on 04/27/2017 at 8:34 . Assessment & Plan Adilia Garcia is a 66 year old super morbid obese woman presenting as a direct admission from [facility] for hyperkalemia, JAE, and likely CHF exacerbation. Upon presentation she is acutely altered with ABG revealing respiratory acidosis likely secondary to obesity hypoventilation syndrome with underlying asthma. There was some suggestion of chest pain upon presentation, serial trops negative per [facility] records, ECG reassuring per transfer records. Patient continues to improve from a cognitive and respiratory standpoint, she states that her new diet is unpalatable, but that she is committed to adhering to our dietary advice to the best of her ability. Acute encephalopathy, poa. Improved -Likely second to hypercapnic respiratory failure secondary to obesity hypoventilation and CHF exacerbation -When necessary and at night Bpap -Continue IV Lasix for diuresis Acute on chronic hypercapnic respiratory failure with underlying COPD, POA, acute on chronic. Improved -As above likely secondary to pickwikian physiology; patient also has heart failure that is exacerbating this issue -Bpap as above -Continue to monitor saturation -DuoNeb Q4 PRN -Montelukast 10 mg PO daily -Lasix as above Heart failure with preserved ejection fraction, POA, chronic. Active -ECHO 01/16/16 reveals EF 55%, no wall motion abnormalities, no valvular pathology, diastolic dysfunction -Lasix 40 mg IV BID -Stopped IV fluids running on transfer -We will consider additional echo if she becomes decompensated; recommend follow -up echo outpatient Hyperkalemia, POA, chronicity uncertain. Resolved -Treated using protocol with Lasix, albuterol, insulin, and Kayexalate Diabetes mellitus with peripheral neuropathy, POA, chronic. Active -Lantus 85 U QHS home dosage reduced to 40 U QHS due to likely greatly reduced PO intake; A1c 7.2 per [place] records -Lispro 5U with meals; Lispro medium dose sliding scale -Gabapentin 600 mg PO tid -Patient was transitioned to low calorie very low carb diet to begin comprehensive lifestyle changes aimed at weight loss and glycemic control Acute Kidney injury, POA. Resolving -Avoid Nephrotoxic medications -Continue to track BUN/Cr -Continue to monitor electrolytes Super Morbid Obesity, POA, chronic. Active -Bariatric bed -Jose lift -Multiple person assist for any turns, moves, lifts, or transfers -Nystatin powder under panniculus -Diphenhydramine 50 mg PO PRN for itching -Dietary modifications as above -Physical therapy ordered for 04/28/17 -Swallow evaluation normal 04/27/17 HTN, POA, Chronic. Active -Lisinopril 10 mg PO daily begin tomorrow AM -Amlodipine 5 mg PO daily Begin tomorrow AM -Lasix as above Depression and anxiety, POA, chronic. Active -Continue home Nortriptyline 50 mg PO hs -Continue home Temazepam 15 mg PO HS PRN GERD, POA, chronic. Active -Protonix 40 mg PO BID Multiple bruises and abrasions, POA, acute. Active -Multiple bruises and abrasions appear to be at roughly similar stages of healing suggestive of a singular trauma consistent with history of fall -Neosporin applied to open abrasion -Continue to observe large eschar on Right knee with low threshold to start antibiotics Disposition: Patient will likely be able to DC home tomorrow with no needs, she would benefit from further nutritional counseling as an outpatient. Pain Evaluation: Adequate Pain Control GI Prophylaxis: H2 abraham VTE Prophylaxis: Sub-Q Heparin (Unfractionated) Resuscitation Status: CPR: Attempt Resuscitation Attending Statement The patient was seen and examined together with Dr. Mai on 04/29/17 and I have added additional information to the note above. Aquilino Mai DO Apr 29, 2017 17:41 Jasmine Estrada DO Apr 30, 2017 16:49
[2017-04-29] MEDS ORDERED: HYDROcodone-APAP 5-325 mg Tablet PO ONE (18:20)
[2017-04-29] MEDS: Insulin GLARgine 100 Unit/mL Syringe SUBQ SCH (21:10)
[2017-04-30] VITALS (11 sets, daily range): BP systolic 83–123; BP diastolic 37–73; PULSE 71–113; RESP 12–20; O2SAT 93–99
[2017-04-30] MEDS: Heparin 5,000 Unit/mL Inj SUBQ SCH ×3 (00:55→16:49)
[2017-04-30 02:33] LABS: BASOPHILS % (AUTO) 0.3 % (0-3); EOSINOPHILS % (AUTO) 3.1 % (0-5); MONOCYTES % (AUTO) 10.1 % (4-12); Mean Corpuscular Hemoglobin 27.9 pg (27.0-35.0); Mean Corpuscular Volume 92.8 fL (81-100); Platelet Count 361 bil/L (150-400)
[2017-04-30 02:44] LABS: INR 1.06 ratio
[2017-04-30 03:20] LABS: Phosphorus 4.7 mg/dL (2.5-4.9)
[2017-04-30 03:35] LABS: Magnesium 1.2 mg/dL (1.6-2.6)
[2017-04-30] MEDS ORDERED: HYDROcodone-APAP 5-325 mg Tablet PO ONE (04:20)
[2017-04-30] MEDS ORDERED: Mag Sulf 4 Gm/100 mL IV Premix (Mag < 1.6 & Creat < 2) IV ONE (04:50)
--- NOTE | 2017-04-30 05:23 | NUR ---
Pain/Mag Pt c/o pain 09/03 x2 this shift in her knees. Pt states that she is unable to have knee surgery r/t her weight and other health issues. Pt received 1 tab [place] x2 this shift and effective at decreasing pain. Pt has been able to rest most of the shift. Pt mag this am was 1.2, notified and orders for K+ mag protocol initiated. Pt will received 4mg Mag over 2 hours and another lab draw has been ordered for 0730 this am. VSS and Tele SR
[2017-04-30] MEDS: Insulin LISPRO 300 Unit/3 mL Inj SUBQ SCH ×2 (08:00→12:00)
[2017-04-30] MEDS: Fluticasone 100 mCg Inhaler INHALATION SCH (09:18)
[2017-04-30] MEDS: Nystatin 100,000 Unit/Gm 15 Gm Powder TOPICAL SCH (09:20)
[2017-04-30] MEDS: NEOMY/BACITRA/POLYMYX OINT 1 PACKET/0.9 GM PACKET TOPICAL SCH (09:21)
[2017-04-30] MEDS ORDERED: INSU100V7 SUBQ (10:33)
[2017-04-30 11:06] LABS: APPEARANCE,URINE CLOUDY (CLEAR,HAZY); COLOR,URINE YELLOW (YELLOW); OCCULT BLOOD,URINE TRACE (NEGATIVE)
[2017-04-30 11:08] LABS: UROBILINOGEN,URINE NORMAL (NORMAL)
--- NOTE | 2017-04-30 11:20 | NUR ---
back pain pt reported severe lower back pain. PRN Tylenol given. will follow up with patient.
[2017-04-30] MEDS ORDERED: CIPR-198 PO (11:41)
--- NOTE | 2017-04-30 11:52 | PCM.DIMED ---
Aquilino Mai DO 04/30/17 1055: Discharge Instructions Date of Service Apr 30, 2017 Dates of Hospitalization Apr 26, 2017 at 14:30 Discharge Diagnosis Discharge Diagnosis Acute encephalopathy, poa. Resolved: You were a little confused when you came in , this was due to your breathing being impaired from all the fluid in your lungs causing an accumulation of carbon dioxide and less oxygen to the brain. We were able to get a lot of that fluid off, and as your breathing improved so too did your clarity. Acute on chronic hypercapnic respiratory failure with underlying COPD, POA, acute on chronic. Improved: As above your breathing was not very good when you got here. We put you on the bipap and got a lot of fluid off of you which appears to have helped immensely. Heart failure with preserved ejection fraction, POA, chronic. Active: It appears that when you arrived your heart was not pumping very well. Part of that was because you arrived on IV fluids which was just overwhelming your hearts ability to pump. This appears to have improved with Lasix getting the extra water out of your body. Hyperkalemia, POA, chronicity uncertain. Resolved: Your potassium was too high when you came in. This was both because your blood sugar was too high which causes calcium to leak out of the cells, and because your kidneys weren't doing very well. We gave you a dose of that chalky medicine Kayexalate which along with supportive care appears to have fixed this problem. Diabetes mellitus with peripheral neuropathy, POA, chronic. Active: I think the most important thing moving forward is getting your diabetes and weight under control. To that end I cannot recommend highly enough that you stick to the diet outlined by Dr. Mishra. I will include further dietary advice in your patient instructions. By getting your diabetes under control you will be able to reduce your insulin dosage, which will have a profound impact on your weight loss. If you can lose a significant amount of weight then all your medical problems will improve and your quality of life will change dramatically. Changing your diet will without a doubt be the most difficult part of this journey, but you are fundamentally faced with a choice between a few years of ill health and an early , or eating in a way you never have before. You have made great progress here, I believe that you have the motivation to continue with what is essentially a life saving and life changing shift in your diet. Uncomplicated urinary tract infection: It appears that you have a urinary tract infection, we will prescribe you an antibiotic called Ciprofloxacin for you to sheepskin pickler at the pharmacy. Please take this medication twice per day for 3 days. Acute Kidney injury, POA. Resolving Super Morbid Obesity, POA, chronic. Active HTN, POA, Chronic. Active Depression and anxiety, POA, chronic. Active GERD, POA, chronic. Active Multiple bruises and abrasions, POA, acute. Active . Diet Discharge Diet: Other (See discharge instructions for full dietary advice) Activity Discharge Activity: No restrictions (Let your body be your guide, try to advance your physical acitivity day by day without aggravating your knees to badly.) Call your provider Call your provider for: Fever or Chills, Shortness of breath, Bleeding, Chest pain, Vomitting, Excessive diarrhea, Weakness (unilateral) Patient Instructions Patient Instructions Your diet will be the most important factor in your health moving forward. Per Dr. Mishra's recommendations please adhere to a very low carbohydrate low calorie diet; this is not a temporary type of fad diet but rather a lifestyle change that is entirely up to you to follow through with. This diet includes essentially no complex carbohydrates, that means no bread, rice, potatoes, or sweet treats. Your diet should primarily consist of lean protein, non-starchy vegetables(this means avoid potatoes and carrots), and full fat dairy such as yogurt and cheese. For full instructions see the book The Diabetes Solution by Dr. Kwabnea Ruggiero, he also runs a website called www.dietIbelem.MobFox. We will refer you to a book shelver for further counseling. Follow-up plan Please follow up with your primary care provider within 1 week. We have referred you to for home health physical therapy, as well as nutritional counseling. Follow-up Provider: Sheyla Rosario Follow-up with PCP in: 1 week (Follow up UTI) Jasmine Estrada DO 04/30/17 1707: Discharge Instructions Patient Instructions Patient Instructions Please continue to follow the low carbohydrate diet that you have been following in the hospital. Please follow the recommendations of the book shelver. Please continue to move and do light exercises as tolerated. The exercising/ walking should not hurt your knees. If you do have pain in the knees then please stop and rest before continuing. Please follow up with your primary care doctor for further instructions. Attending's Statement The patient was seen and examined together with Dr. Mai on 04/30/17 and I have added additional information to the note above. Aquilino Mai DO Apr 30, 2017 10:55 Jasmine Estrada DO Apr 30, 2017 17:07
--- NOTE | 2017-04-30 14:10 | NUR ---
Faxed [facility] transport form requesting transport from [facility] for a 1530 pick up operator time in patient's room. Patient will be returning home to her apartment in [place]. Updated INSULATION ENGINEMAN Addendum: 04/30/17 at 1506 by LILIANE CONNORS CM Spoke with Tong [place]argo [facility] transport and [facility] can do the transport at 1700, we will be providing wheelchair and O2 Updated INSULATION ENGINEMAN
--- NOTE | 2017-04-30 15:29 | PCM.DC.MED ---
Discharge Summary Date of Service Apr 30, 2017 Dates of Hospitalization Date of Hospital Admission Apr 26, 2017 at 14:30 Date of Discharge: Apr 30, 2017 Providers: Admitting Physician: Fernie Mishra MD Primary Care Physician: Sheyla Rosario Attending Physician: Fernie Mishra MD Diagnosis at Time of Discharge Diagnosis at Time of Discharge Acute encephalopathy, poa. Resolved: You were a little confused when you came in , this was due to your breathing being less than stellar from all the fluid in your lungs causing an accumulation of carbon dioxide and less oxygen to the brain. We were able to get a lot of that fluid off, and as your breathing improved so too did your clarity. Acute on chronic hypercapnic respiratory failure with underlying COPD, POA, acute on chronic. Improved: As above your breathing was not very good when you got here. We put you on the bipap and got a lot of fluid off of you which appears to have helped immensely. Heart failure with preserved ejection fraction, POA, chronic. Active: It appears that when you arrived your heart was not pumping very well. Part of that was because you arrived on IV fluids which was just overwhelming your hearts ability to pump. This appears to have improved with Lasix getting the extra water out of your body. Hyperkalemia, POA, chronicity uncertain. Resolved: Your potassium was too high when you came in. This was both because your blood sugar was too high which causes calcium to leak out of the cells, and because your kidneys weren't doing very well. We gave you a dose of that chalky medicine Kayexalate which along with supportive care appears to have fixed this problem. Diabetes mellitus with peripheral neuropathy, POA, chronic. Active: I think the most important thing moving forward is getting your diabetes and weight under control. To that end I cannot recommend highly enough that you stick to the diet outlined by Dr. Mishra. I will include further dietary advice in your patient instructions. By getting your diabetes under control you will be able to reduce your insulin dosage, which will have a profound impact on your weight loss. If you can lose a significant amount of weight then all your medical problems will improve and your quality of life will change dramatically. Changing your diet will without a doubt be the most difficult part of this journey, but you are fundamentally faced with a choice between a few years of ill health and an early , or eating in a way you never have before. You have made great progress here, I believe that you have the motivation to continue with what is essentially a life saving and life changing shift in your diet. 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 Please take this medication twice per day for 3 days. Acute Kidney injury, POA. Resolving Super Morbid Obesity, POA, chronic. Active HTN, POA, Chronic. Active Depression and anxiety, POA, chronic. Active GERD, POA, chronic. Active Multiple bruises and abrasions, POA, acute. Active . Procedures XRay, CTs & MRIs X-RAY CHEST ONE VIEW, PORTABLE IMPRESSION: Cephalization of pulmonary vasculature consistent with CHF. Dictated by: Elise Herrera MD, PhD on 04/27/2017 at 8:33 Approved by: Elise Herrera MD, PhD on 04/27/2017 at 8:34 . Brief History Adilia Garcia is a super morbid obese 66 year old woman with a PMH of asthma, likely obesity hypoventilation syndrome with DAWNA on CPAP, Hyperlipidemia, HTN, DM2 on insulin with peripheral neuropathy, diastolic heart failure, GERD, and history of RBBB during an episode of pneumonia in Dec 2015 who presents via direct admit from [facility] for hyperkalemia, respiratory acidosis, CHF exacerbation, and JAE. The patient herself arrives acutely altered with poor recollection of recent events and provides very little useful history. Per HPI on transfer the patient was feeling gradually more fatigued in the days leading up to her admission on 04/24 when she fell resulting in upper extremity and chest abrasion and a deep abrasion of the right knee. Records from [facility] indicate that her Potassium upon presentation was 6.2 which decreased to 5.9 with medical therapy, only to rise again to 6.5 the following; which along with JAE with Cr 1.5 prompted them to request transfer to [facility] for further management. Of note the patient was noted to have a history of CHF with increased LE edema compare to baseline with respiratory difficulty, however she was maintained on NS @ 100 ml/hr with concurrent adequate PO intake of fluids and her diuretic was withheld; in addition the patient was anti-coagulated with Lovenox despite her super obesity and JAE. Hospital Course Adilia Garcia is a 66 year old super morbid obese woman presenting as a direct admission from [facility] for hyperkalemia, JAE, and likely CHF exacerbation. Upon presentation she was acutely altered with ABG revealing respiratory acidosis likely secondary to obesity hypoventilation syndrome with underlying asthma. There was some suggestion of chest pain upon presentation, serial trops negative per [facility] records, ECG reassuring per transfer records. Upon arrival the patient was treated for hyperkalemia using standard agents, a Bpap was placed to alleviate her hypercarbic respiratory failure, and her IVF were discontinued and the patient was diuresed. This resulted in steady improvement of her cognitive function and laboratory parameters over the course of her stay. The patient was also initiated on a very low calorie, minimal carbohydrate diet, which resulted in a few borderline hypoglycemic events even at a much reduced insulin protocol compared to her home regimen. By the end of her stay she was glycemically stable at less than half of her pre-hospital insulin dosing. She will require close follow up to determine her continued insulin requirements, which will likely be largely dependent upon her adherence to her recommended diet. For full hospital course see below: Acute encephalopathy, poa. Improved -Likely second to hypercapnic respiratory failure secondary to obesity hypoventilation and CHF exacerbation -When necessary and at night Bpap -IV Lasix for diuresis Acute on chronic hypercapnic respiratory failure with underlying COPD, POA, acute on chronic. Improved -As above likely secondary to pickwikian physiology; patient also has heart failure that was exacerbating this issue -Bpap as above -Continued to monitor saturation -DuoNeb Q4 PRN -Montelukast 10 mg PO daily -Lasix as above Heart failure with preserved ejection fraction, POA, chronic. Active -ECHO 01/16/16 reveals EF 55%, no wall motion abnormalities, no valvular pathology, diastolic dysfunction -Lasix 40 mg IV BID -Stopped IV fluids running on transfer Hyperkalemia, POA, chronicity uncertain. Resolved -Treated using protocol with Lasix, albuterol, insulin, and Kayexalate Diabetes mellitus with peripheral neuropathy, POA, chronic. Active -Lantus 85 U QHS home dosage reduced to 40 U QHS due to likely greatly reduced PO intake; A1c 7.[address] [facility] records -Lispro 5U with meals; Lispro medium dose sliding scale -Gabapentin 600 mg PO tid -Patient was transitioned to low calorie very low carb diet to begin comprehensive lifestyle changes aimed at weight loss and glycemic control Acute Kidney injury, POA. Resolving -Avoided Nephrotoxic medications -Continued to track BUN/Cr -Continued to monitor electrolytes Super Morbid Obesity, POA, chronic. Active -Bariatric bed -Jose lift -Multiple person assist for any turns, moves, lifts, or transfers -Nystatin powder under panniculus -Diphenhydramine 50 mg PO PRN for itching -Dietary modifications as above -Physical therapy ordered for 04/28/17 HTN, POA, Chronic. Active -Lisinopril 10 mg PO daily begin tomorrow AM -Amlodipine 5 mg PO daily Begin tomorrow AM -Lasix as above Depression and anxiety, POA, chronic. Active -Continued home Nortriptyline 50 mg PO hs -Continued home Temazepam 15 mg PO HS PRN GERD, POA, chronic. Active -Protonix 40 mg PO BID Multiple bruises and abrasions, POA, acute. Active -Multiple bruises and abrasions appear to be at roughly similar stages of healing suggestive of a singular trauma consistent with history of fall -Neosporin applied to open abrasion -Continued to observe large eschar on Right knee Uncomplicated urinary tract infection, POA, acute. Active -Patient manifested leukocytosis with pyuria but no urinary symptoms on the day of discharge -She was started on a course of oral Ciprofloxacin 500 mg BID for 3 days to continue as an outpatient -This should be assessed for resolution as an outpatient Exam Vital Signs (Last) Date Time Temp Pulse Resp B/P Pulse Ox O2 Delivery O2 Flow Rate FiO2 04/30/17 13:54 Nasal Cannula 04/30/17 12:13 36.3 100 12 123/73 93 04/30/17 09:06 2.00 04/30/17 04:43 45 Exam Gen: A/O x3, morbidly obese woman in NAD Neck: Large Bull neck, difficult to determine JVD given habitus, supple, non tender, no lymphadenopathy HEENT: PERRL, EOMI, no scleral icterus, no conjunctival pallor, mucous membranes moist, ptosis of right eye Skin: multiple bruises and abrasions, all appear to be in similar stages of healing implying a singular event, large eschar over right knee with some surrounding erythema, with bandage in place, erythema was retreating from previously outlined border CV: very distant heart tones, RRR, 2/6 systolic ejection murmur, no rubs or gallops Lungs: Very distant lung sounds, CTA BL as best as can be determined Abdomen: Soft, very obese, non tender, cannot appreciate bowel tones complicated by habitus, erythema and white exudate under prodigious panniculus Extr: BL LE non pitting edema improved since prior exam, as above many abrasion in similar stages of healing Neuro: CN 2-12 grossly intact, no focal neurologic deficit Psych: appropriate mood and affect with self deprecating humor Test 04/30/17 02:03 04/30/17 07:30 04/30/17 10:53 White Blood Count 14.0th/mm3 (3.8-10.1) Red Blood Count 4.33mil/mm3 (3.90-5.20) Hemoglobin 12.1g/dL (12.0-15.6) Hematocrit 40.2% (35.0-46.0) Mean Corpuscular Volume 92.8fL (81-100) Mean Corpuscular Hemoglobin 27.9pg (27.0-35.0) Mean Corpuscular Hemoglobin Concent 30.1% (32.0-37.0) Red Cell Distribution Width 14.8% (12.3-15.4) Platelet Count 361bil/L (150-400) Neutrophils (%) (Auto) 72.0% (40-74) Lymphocytes (%) (Auto) 14.0% (14-46) Monocytes (%) (Auto) 10.1% (4-12) Eosinophils (%) (Auto) 3.1% (0-5) Basophils (%) (Auto) 0.3% (0-3) Prothrombin Time 11.4sec (8.1-12.5) Prothromb Time International Ratio 1.06ratio Sodium Level 137mEq/L (134-144) Potassium Level 3.9mEq/L (3.5-5.2) Chloride Level 86mEq/L (97-108) Carbon Dioxide Level 35mmol/L (18-29) Blood Urea Nitrogen 32mg/dL (8-27) Creatinine 1.44mg/dL (0.57-1.00) Estimat Glomerular Filtration Rate 52mL/min (>59) Glucose Level 125mg/dL (60-99) Calcium Level 9.1mg/dL (8.5-10.1) Phosphorus Level 4.7mg/dL (2.5-4.9) Total Bilirubin 0.5mg/dL (0.0-1.2) Aspartate Amino Transf (AST/SGOT) 28U/L (0-50) Alanine Aminotransferase (ALT/SGPT) 13U/L (0-32) Alkaline Phosphatase 99U/L (25-165) Total Protein 6.6g/dL (6.4-8.4) Albumin 3.2g/dL (3.4-5.0) Magnesium Level 2.5mg/dL (1.6-2.6) Procalcitonin 0.35ng/mL (0.00-0.08) Urine Color Yellow (YELLOW) Urine Appearance Cloudy (CLEAR,HAZY) Urine pH 5.0 (5.0-8.0) Urine Specific [place] 1.030 (1.003-1.035) Urine Protein Negativemg/dL (NEG,TRACE) Urine Glucose (UA) Negativemg/dL (NEGATIVE) Urine Ketones Negativemg/dL (NEGATIVE) Urine Occult Blood Trace (NEGATIVE) Urine Nitrite Negative (NEGATIVE) Urine Bilirubin Negative (NEGATIVE) Urine Urobilinogen Normalmg/dL (NORMAL) Urine Leukocyte Esterase Moderate (NEGATIVE) Urine RBC 3-10/hpf (0-2) Urine WBC 11-50/hpf (0-5) Urine Epithelial Cells Moderate/hpf (NONE-MOD) Urine Crystals None seen (NONE SEEN) Urine Bacteria Moderate/hpf (NONE-FEW) Urine Hyaline Casts None/lpf (NONE) Urine Granular Casts None seen (NONE SEEN) Urine Waxy Casts None seen (NONE SEEN) Urine Red Blood Cell Casts None seen (NONE SEEN) Urine White Blood Cell Casts None seen (NONE SEEN) Urine Mucus None seen (None Seen) Urine Trichomonas None seen (NONE SEEN) Urine Yeast None (NONE SEEN) Urinalysis Comment None Urine Culture Reflexed Indicated Microbiology Results Urine culture pending Discharge Medications Discharge Medications Atorvastatin (Lipitor) 20 Mg Tablet 20 MG PO HS (Reported) Ciprofloxacin (Ciprofloxacin) 500 Mg Tablet 500 MG PO BID Prescribed by: DELICIA E MAI, DO Gabapentin (Gabapentin) 600 Mg Tablet 600 MG PO TID (Reported) Insulin Glargine (Lantus U100 Insulin Vial) 100 Unit/Ml Vial 40 UNIT SUBQ HS Prescribed by: DELICIA MAI DO Insulin Lispro (HumaLOG U100 Insulin Pen) 100 Unit/1 Ml Insuln.pen 1-25 UNIT SUBQ TIDWM (Reported) Blood Sugar Lispro Correction <151 0 units 151-175 1 unit 176-200 2 units 201-225 3 units 226-250 4 units 251-275 5 units 276-300 6 units 301-325 7 units 326-350 8 units 351-375 9 units 376-400 10 units >400 12 units Check blood sugars before meals and at bedtime. Use correction factor only before meals. Levofloxacin (Levofloxacin) 750 Mg Tablet 750 MG PO DAILY Prescribed by: MANJU PALMER MD Lisinopril (Lisinopril) 10 Mg Tablet 10 MG PO DAILY (Reported) Montelukast (Montelukast) 10 Mg Tablet 10 MG PO DAILY (Reported) Nortriptyline (Nortriptyline) 50 Mg Capsule 50 MG PO HS (Reported) Omeprazole (Omeprazole) 20 Mg Capsule.dr 20 MG PO DAILY (Reported) Temazepam (Temazepam) 15 Mg Capsule 15 MG PO HS (Reported) As needed ([trave sick chew]) 25 MG PO BID PRN PRN For Dizziness (Reported) Albuterol HFA (Proair HFA) 8.5 Gm Hfa.aer.ad 2 PUFFS INHALATION Q4H PRN PRN For Shortness of Breath (Reported) Beclomethasone Dipropionate (Qvar) 8.7 Gm Aer.w.adap 8.7 GM IH DAILY PRN PRN For Shortness of Breath (Reported) Docusate Sodium (Docusate Sodium) 250 Mg Capsule 250 MG PO BID PRN PRN For Constipation (Reported) Fluticasone Propionate (Fluticasone Propionate) 50 Mcg/Actuation [place].susp 15.8 ML NS DAILY PRN PRN sniffles (Reported) diphenhydrAMINE HCl (Benadryl) 25 Mg Capsule 50 MG PO DAILY PRN PRN For Itching (Reported) Followup Plan Disposition: Home with home health physical therapy Follow-up plan Please follow up with your primary care provider within 1 week. We have referred you for home health physical therapy, and nutrition counseling. Discharge Diet: Other (See discharge instructions for full dietary advice) Discharge Activity: No restrictions (Let your body be your guide, try to advance your physical acitivity day by day without aggravating your knees to badly.) Patient Instructions Your diet will be the most important factor in your health moving forward. Per Dr. Mishra's recommendations please adhere to a very low carbohydrate low calorie diet; this is not a temporary type of fad diet but rather a lifestyle change that is entirely up to you to follow through with. This diet includes essentially no complex carbohydrates, that means no bread, rice, potatoes, or sweet treats. Your diet should primarily consist of lean protein, non-starchy vegetables(this means avoid potatoes and carrots), and full fat dairy such as yogurt and cheese. For full instructions see the book The Diabetes Solution by Dr. Kwabena Ruggiero, he also runs a website called www.dietGraematter. We will refer you to a service provider for further counseling. Follow-up Provider: Sheyla Rosario Follow-up with PCP in: 1 week (Follow up UTI) Time spent Greater than 35 minutes Attending Statement The patient was seen and examined together with Dr. Mai on 04/30/17 and I have added additional information to the note above. copies to: Sheyla Rosario David E DO Apr 30, 2017 15:29 Jasmine Estrada DO Apr 30, 2017 17:19
--- NOTE | 2017-04-30 15:53 | NUR ---
Social Work Note: Discharge Data& Assessment: Per pt is medically ready to discharge home via Medicaid Transport. Adilia Garcia is a 66 year old female admitted on 04/26/2017 for hperkalemia. Per pt is medically improved and ready to discharge. PT is recommending SNF, pt is declining SNF and was also declining home health services. After Speaking with pt sister who pt lives with, pt sister convinced pt to accept home health PT. SW presented Home Health list to pt for preferences. Pt prefers [facility]. Per order, BREANNA arranged home health PT 2-3x a week for three weeks with [facility] . Pt transporting via Medicaid transport at 5:00p.m Pt, pt sister and RN all updated and agreeable to plan. Pt will resume [facility] caregiving and res. Care. Pt DC paperwork faxed to Pt [facility] CM. Pt denies any other needs. No other discharge needs identified. All updated and agreeable to plan. Plan: Per pt is medically ready to discharge home with [facility] 2-3x a week for three weeks via Medicaid Transport at 5:00p.m.. BREANNA spoke with pt sister as well to confirm discharge plan. Pt denies any other needs. No other discharge needs identified. All updated and agreeable to plan. ELLIOT Newell
--- NOTE | 2017-04-30 16:00 | NUR ---
Blood pressure pt reported feeling dizzy and mildly lightheaded. Blood pressure noted to be slightly decreased. MD informed. PO given as IV site had been discontinued. pt consumed about 900mls water. monitoring of BP shown slight improvement. patient states dizziness resolved. MD informed. continued PO intake encouraged.
--- NOTE | 2017-04-30 16:12 | NUR ---
Faxed discharge to [facility] per [facility]
--- NOTE | 2017-04-30 17:40 | NUR ---
Discharge pt ordered for discharge home with home health services. pt aware. discharge instructions and medications reviewed with patient. pt escorted to front lobby via bariatric wheelchair with all belongings for [facility] transport home.
== END 2017-04-30 17:30 | disposition home health service (06) | DRG 189 ==
LOC: PCC 14:30
PROVIDERS: ADMIT Internal Medicine; ATTEND Internal Medicine
PROC: 4A033B1 Measurement of Arterial Pressure, Peripheral, Percutaneous Approach (ICD-10-PCS; principal; 2017-04-26)
PROC: 5A09457 Assistance with Respiratory Ventilation, 24-96 Consecutive Hours, Continuous Positive Airway Pressure (ICD-10-PCS; 2017-04-26)
DX: J96.22 Acute and chronic respiratory failure with hypercapnia (principal); G93.40 Encephalopathy, unspecified; I50.33 Acute on chronic diastolic (congestive) heart failure; N17.9 Acute kidney failure, unspecified; E66.2 Morbid (severe) obesity with alveolar hypoventilation; Z68.43 Body mass index [BMI] 50.0-59.9, adult; E87.2 Acidosis; N39.0 Urinary tract infection, site not specified; E87.5 Hyperkalemia; J45.909 Unspecified asthma, uncomplicated; Z79.4 Long term (current) use of insulin; E11.42 Type 2 diabetes mellitus with diabetic polyneuropathy; I45.10 Unspecified right bundle-branch block; J44.9 Chronic obstructive pulmonary disease, unspecified; K21.9 Gastro-esophageal reflux disease without esophagitis

== ENCOUNTER 2017-05-01 14:51 | Inpatient (IN) | payer OTHER, MEDICAID ==
[~2017-05-01] VITALS: Ht 165.1 cm; Wt 163.0 kg
[~2017-05-01 14:51] MED LIST changes: -AMLO5TAB2 PO; +CIPR-198 PO; +DIPH25CA6 PO; -DIPH50C PO
[2017-05-01 16:53] VITALS: BP 115/41; PULSE 70; RESP 20; O2SAT 93
[2017-05-01 17:03] VITALS: PULSE 70
[2017-05-01] MEDS ORDERED: Ondansetron 2 mg/mL 2 mL Inj IVPUSH PRN (17:20)
[2017-05-01] MEDS ORDERED: Polyethylene Glycol (PEG) 17 Gm Powder PO PRN (17:20)
[2017-05-01] MEDS ORDERED: Alum-Mag Hydrox-Simeth 30 mL Suspension PO PRN (17:20)
[2017-05-01] MEDS ORDERED: diphenhydrAMINE 25 mg Capsule PO PRN (17:30)
[2017-05-01] MEDS ORDERED: 0.9% Sodium Chloride 1,000 ML IV ONE (17:35)
--- NOTE | 2017-05-01 17:44 | PCM.HPMED ---
Subjective Date of Service May 01, 2017 Primary Provider: Admitting Physician: Jasmine Estrada DO Primary Care Physician: Sheyla Rosario Attending Physician: Jasmine Estrada DO Chief Complaint: Confusion History of Present Illness: Adilia Garcia is a 66 year old super morbid obese woman with a PMH of DM2, HTN, obesity hypoventilation syndrome, osteo-arthritis, GERD, depression and anxiety who was recently discharged from [facility] following a 5 day stay where she was treated for a CHF exacerbation which lead to hypercarbic respiratory failure via robust diuresis. She reports that last evening her home Cpap was not functioning properly, and thus she was unable to sleep, she was awake until about 5 am and reports shivering in that interim. In the morning her sister found her acutely confused similar to her presentation when she arrived to [facility] on 04/26 and was hypercarbic. The patient was taken to [facility] where laboratory evaluation revealed gross leukocytosis, hyponatremia, hypochloremia, and hypotension with acutely elevated Cr more than double her value prior to discharge from this facility. She was transferred back to [facility] for further evaluation. The patient denies SOB beyond her baseline, productive cough, fevers (though as above she was shivering prior to last evening), denies dysuria, diarrhea, abdominal pain, pain or heat from her multiple abrasions from prior ground level fall. She states that she feels "About 90% myself" in terms of mentation, but otherwise has no complaints. Upon arrival that patient was found to be afebrile, borderline hypotensive, and very minimally altered similar to her self assessment of cognition. Review of Systems: Comprehensive ROS negative except as outlined above. Allergies Coded Allergies: Penicillins (Verified Allergy, Severe, Anaphylaxis, 01/15/16) AFTER PCN SHOT CHILD morphine (Unverified Allergy, Intermediate, itching , 01/16/16) codeine (Verified Adverse Reaction, Intermediate, Itching, 01/15/16) Home Medications Lipitor 20 mg PO HS Beclomethasone 8.7 g IH daily PRN Insulin Lantus 40 U subQ HS Insulin Aspart Sliding scale with meals Pamelor 50 mg PO hs Singulair 10 mg tablet PO daily Aspirin 81 mg PO daily Duloxetine 250 mg PO BID PRN Tylenol 650 mg PO Q6 PRN Albuterol 2 puffs inh Q4 PRN Lisinopril 10 mg PO daily . PMH Asthma Hyperlipidemia HTN GERD Super morbid obesity DM2 with neuropathy RBBB Osteo arthritis obesity hypoventilation syndrome Surgical History None reported Family History Father of [place] age 58 Mother of brain bleed 47 Lives with her sister who is relatively healthy Social History Hx Alcohol Use: Yes (quit 30 years ago) Hx Substance Use: No Hx Tobacco Use: Yes (quit 30 years ago) Smoking Status: Former Smoker Living Arrangement: with Family Exam Vital Signs Vital Sign - Last Date Time Temp Pulse Resp B/P Pulse Ox O2 Delivery O2 Flow Rate FiO2 05/01/17 17:03 70 05/01/17 16:53 36.6 20 115/41 93 Nasal Cannula 2.00 Exam Gen: A/O x3, morbidly obese woman in NAD Neck: Large Bull neck, difficult to determine JVD given habitus, supple, non tender, no lymphadenopathy HEENT: PERRL, EOMI, no scleral icterus, no conjunctival pallor, mucous membranes moist Skin: multiple bruises and abrasions, all appear to be in similar stages of healing implying a singular event, large eschar over right knee with some surrounding erythema and bandage in place appears unchanged from prior evaluation CV: very distant heart tones, RRR, 2/6 systolic ejection murmur, no rubs or gallops Lungs: Very distant lung sounds, CTA BL as best as can be determined Abdomen: Soft, very obese, non tender, cannot appreciate bowel tones complicated by habitus, erythema and white exudate under very large pendulous panniculus Extr: BL LE mild non pitting edema, as above many abrasion in similar stages of healing Neuro: CN 2-12 grossly intact, no focal neurologic deficit Psych: appropriate mood and affect . Assessment & Plan Adilia Garcia is a 66 year old Super morbid obese woman with who recently discharged from [facility] having been treated for a CHF exacerbation which lead hypercapnic respiratory failure and JAE with hyperkalemia. She was found confused by her sister this morning following malfunction of her home Cpap with self reported lack of sleep and shivering. She denies any concerning infectious symptoms beyond the shivering. Lab values from [facility] were grossly abnormal and are being repeated at this facility. Acute encephalopathy, POA, acute. Improved -Patient appears to be minimally altered from baseline at the time of evaluation -Likely secondary to hypercapnic respiratory failure due to malfunctioning Cpap and lack of supplemental oxygen in the setting of obesity hypoventilation syndrome -Supplemental O2 -NPPV overnight and as needed throughout the day Acute Kidney Injury, POA, acute on chronic. Active -Cr from [facility] upon transfer was 3.31 compared to 1.41 on day of prior discharge 04/30/17 -Patient was aggressively diuresed upon last admission with a net fluid balance of minus 10L -Likely secondary to pre renal volume depletion -Patient did have pyuria and mildly elevated WBC prior to DC on 04/30/17; patient was discharged on Ciprofloxacin; Urine culture no growth at 48 hours -Will begin with 1L bolus NS, patient arrived on IVF having received a prior bolus from [facility] -Avoid nephrotoxic medications -Will Repeat CMP Leukocytosis, POA, acute. Active -Per [facility] records patient arrived with a WBC >40 compared to 14 on 04/30/17 -Source unclear as patient denies respiratory symptoms beyond chronic SOB, dysuria, diarrhea(had solid formed BM since discharge), pain or heat from abrasions -Patient afebrile and mildly hypotensive -Will repeat CBC w/diff -Will transition to Ceftriaxone to cover for possible UTI or Cellulitis -Blood culture x4 Diabetes Mellitus with peripheral neuropathy, POA, chronic. Active -Will continue Lantus 40 QHS per discharge level -Lispro Medium dose correctional scale -A1c 7.1 1 week ago -Patient had been transitioned to a very low carbohydrate diet with prior hospitalization -Will change to diabetic constant carb diet to ensure prior diet was not a factor in decompensation Super Morbid Obesity, POA, chronic. Active -Bariatric bed -Jose lift -Multiple person assist for any turns, moves, lifts, or transfers -Nystatin powder under panniculus -Diphenhydramine 50 mg PO PRN for itching HTN, POA, Chronic. Active -Lisinopril 10 mg PO daily Depression and anxiety, POA, chronic. Active -Continue home Nortriptyline 50 mg PO hs -Continue home Temazepam 15 mg PO HS PRN GERD, POA, chronic. Active -Famotidine 20 PO BID Multiple bruises and abrasions, POA, acute. Active -Multiple bruises and abrasions appear to be at roughly similar stages of healing suggestive of a singular trauma consistent with history of fall -Ceftriaxone to cover potential Cellulitis Heart failure with preserved ejection fraction, POA, chronic. Active -ECHO 01/16/16 reveals EF 55%, no wall motion abnormalities, no valvular pathology, diastolic dysfunction -We will consider additional echo if she becomes decompensated; recommend follow -up echo outpatient Excoriated skin lesion, POA, chronic. Active -Patient chronically itches herself -Is potential for seeding infection -Abx and blood cultures as above Disposition: Inpatient, anticipated length of stay > 2 midnights due to severity of condition and complexity of treatment plan. Pain Evaluation: Adequate Pain Control GI Prophylaxis: H2 abraham VTE Prophylaxis: Sub-Q Heparin (Unfractionated) Resuscitation Status: CPR: Attempt Resuscitation Aquilino Mai DO May 01, 2017 17:44
[2017-05-01 18:13] LABS: BASOPHILS % (AUTO) 0.1 % (0-3); EOSINOPHILS % (AUTO) 0.2 % (0-5); MONOCYTES % (AUTO) 4.4 % (4-12); Mean Corpuscular Hemoglobin 28.4 pg (27.0-35.0); Mean Corpuscular Volume 91.1 fL (81-100); NEUTROPHILS % (AUTO) 88.5 % (40-74); Platelet Count 378 bil/L (150-400)
[2017-05-01 18:36] LABS: Magnesium 1.9 mg/dL (1.6-2.6)
[2017-05-01] MEDS: 0.9% Sodium Chloride 1,000 ML IV SCH (18:40)
[2017-05-01] MEDS ORDERED: Albuterol-Ipratropium 3 mL Inhalation Solution NEB PRN (18:45)
--- NOTE | 2017-05-01 19:27 | NUR ---
Admit: Patient was a direct admit from [facility]. Report was rec'd by Dwight SHARPE. Pt arrived at 1650 via EMS. Pt A&O X3. Tele: Sinus 70's. Denies CP, SOB. SpO2: low 90's on 2L NC (2L NC baseline oxygen) VSS. L AC PIV infusing NS 200ml/hr. Pt reports 10/10 neck and back pain. Lab reported critical WBC 33.7. Dr Valdovinos notified of pain and critical lab value.
[2017-05-01 20:00] VITALS: BP 94/50; PULSE 69; RESP 18; O2SAT 93
[2017-05-01] MEDS: Nystatin 100,000 Unit/Gm 15 Gm Powder TOPICAL SCH (20:30)
[2017-05-01] MEDS ORDERED: Fluticasone 0.05% 15 Spray/2 Gm 16 Gm Nasal Spray NASAL PRN (21:02)
[2017-05-01] MEDS: Fluticasone 100 mCg Inhaler INHALATION SCH (21:34)
[2017-05-01] MEDS: cefTRIAXone Inj 2,000 MG in Dextrose 5% Minibag Plus 50 ML IV SCH (21:40)
[2017-05-01] MEDS: Insulin GLARgine 100 Unit/mL Syringe SUBQ SCH (21:45)
[2017-05-01 22:53] VITALS: BP 96/51; PULSE 65; RESP 18; O2SAT 91
[2017-05-01 23:54] VITALS: RESP 16; O2SAT 92
[2017-05-02] VITALS (7 sets, daily range): BP systolic 93–121; BP diastolic 50–74; PULSE 64–109; RESP 18–22; O2SAT 83–98
[2017-05-02] MEDS: Heparin 5,000 Unit/mL Inj SUBQ SCH ×3 (00:26→18:22)
[2017-05-02] MEDS: 0.9% Sodium Chloride 1,000 ML IV SCH ×2 (04:53→15:12)
[2017-05-02 05:38] LABS: BASOPHILS % (AUTO) 0.2 % (0-3); EOSINOPHILS % (AUTO) 1.6 % (0-5); MONOCYTES % (AUTO) 4.8 % (4-12); Mean Corpuscular Hemoglobin 28.4 pg (27.0-35.0); Mean Corpuscular Volume 91.8 fL (81-100); Platelet Count 323 bil/L (150-400)
--- NOTE | 2017-05-02 06:08 | NUR ---
Cardiac/Renal/Wound R knee Patient resting in bed, no distress noted, c/o pain 9/10 in neck/back and right knee pain, notified MD and order for pain medication received, call light in reach. 2199 Admission screening completed, RT notified that CPAP is requested by patient since patient did not bring home CPAP. Medicated for pain in neck, back and knee pain prior to dressing change on right knee. 0 - Wound cleansed with saline and non-adherent pad placed over wound with Mepelix dressing on top. 2300 Patient resting well since sleeping meds and pain meds given, refusing to reposition and turn despite education on importance of turning and risks of pressure sores. 0430 Patients HR went from 80s NSR to BBB 100s, asymptomatic , tolerating VPAP well, MD ordered AM labs, notified MD that patient has not voided and the best bladder scan volume obtained showed 5ml urine, unable to get good bladder scan due to abdominal pannus, order to continue to monitor urine output. Addendum: 05/02/17 at 0610 by DEREK STEPHENS RN Amended: Links added.
[2017-05-02] MEDS: Pantoprazole 20 mg ER24 Tablet PO SCH (06:27)
[2017-05-02] MEDS ORDERED: 0.9% Sodium Chloride 1,000 ML IV ONE (07:50)
[2017-05-02] MEDS: Nystatin 100,000 Unit/Gm 15 Gm Powder TOPICAL SCH ×2 (08:30→22:24)
[2017-05-02] MEDS: Fluticasone 100 mCg Inhaler INHALATION SCH ×2 (09:00→22:23)
--- NOTE | 2017-05-02 09:53 | PCM.PNMED ---
Subjective Date of Service May 02, 2017 Subjective Adilia Garcia states that she feels much improved today after a good nights sleep. Both she and her family report that she is back to baseline mentation. She continues to deny SOB beyond baseline, dysuria, diarrhea, abdominal pain, pain or heat in her extremities, or subjective fevers. Overnight nursing noted that she did not have any urine output, otherwise she was able to rest comfortably on NPPV. Comprehensive ROS negative except as outlined above. Exam Vital Signs Vital Sign - Last Date Time Temp Pulse Resp B/P Pulse Ox O2 Delivery O2 Flow Rate FiO2 05/02/17 08:00 104 05/02/17 02:57 36.5 18 93/55 83 CPAP 05/01/17 23:54 3.00 Intake and Output 05/01/17 05/01/17 05/02/17 Cumulative From/Thru 15:00 23:00 07:00 05/01/17 20:04 - 05/02/17 05:14 Intake Total 1011 ml 1011 ml Output Total 0 ml 0 ml Balance 1011 ml 1011 ml Intake Oral 0 ml 0 ml IV Total 1011 ml 1011 ml Output Urine Total 0 ml 0 ml # Bowel Movements 0 0 Exam Gen: A/O x3, morbidly obese woman in NAD, speaking and interacting with more clarity today Neck: Large Bull neck, difficult to determine JVD given habitus, supple, non tender, no lymphadenopathy HEENT: PERRL, EOMI, no scleral icterus, no conjunctival pallor, mucous membranes moist Skin: multiple bruises and abrasions, all appear to be in similar stages of healing implying a singular event, large eschar over right knee with some surrounding erythema and bandage in place appears unchanged from prior evaluation, excoriated areas on the upper trunk and helix of ears appearing in areas that are accessible for scratching CV: very distant heart tones, RRR, 2/6 systolic ejection murmur, no rubs or gallops Lungs: Very distant lung sounds, CTA BL as best as can be determined Abdomen: Soft, very obese, non tender, cannot appreciate bowel tones complicated by habitus, erythema and white exudate under very large pendulous panniculus Extr: BL LE mild non pitting edema, as above many abrasion in similar stages of healing Neuro: CN 2-12 grossly intact, no focal neurologic deficit Psych: appropriate mood and affect IVs and Medications IV Fluids NS 1L @ 100 ml/hr 50 ml NS delivered with IV medication Medications Reviewed: Medications were reviewed in detail Lab and Diagnostics Item Value Date Time Red Blood Count 4.02 mil/mm3 05/02/17 05 Mean Corpuscular Volume 91.8 fL 05/02/17 05 Mean Corpuscular Hemoglobin 28.4 pg 05/02/17 05 Mean Corpuscular Hemoglobin Concent 30.9 % L 05/02/17 05 Red Cell Distribution Width 15.3 % 05/02/17 0525 Neutrophils (%) (Auto) 85.0 % H 05/02/17 0525 Lymphocytes (%) (Auto) 8.1 % L 05/02/17 05 Monocytes (%) (Auto) 4.8 % 05/02/17 05 Eosinophils (%) (Auto) 1.6 % 05/02/17 05 Basophils (%) (Auto) 0.2 % 05/02/17 0525 Estimat Glomerular Filtration Rate 23 mL/min 05/02/17 0525 Lactic Acid Level 1.2 mmol/L 05/01/17 1750 Calcium Level 8.2 mg/dL L 05/02/17 0525 Total Bilirubin 0.4 mg/dL 05/02/17 0525 Aspartate Amino Transf (AST/SGOT) 29 U/L 05/02/17 0525 Alanine Aminotransferase (ALT/SGPT) 18 U/L 05/02/17 0525 Alkaline Phosphatase 90 U/L 05/02/17 0525 Total Protein 6.1 g/dL L 05/02/17 0525 Albumin 3.1 g/dL L 05/02/17 0525 Result Diagram: 05/02/17 0525 05/02/17 0525 Microbiology Previous Urine culture grew presumptive enterococcus Blood culture pending Wound culture no organisms or polys seen Assessment & Plan Adilia Garcia is a 66 year old Super morbid obese woman who recently discharged from [facility] having been treated for a CHF exacerbation which lead to hypercapnic respiratory failure and JAE with hyperkalemia. She was found confused by her sister this morning following malfunction of her home Cpap with self reported lack of sleep and shivering. She denies any concerning infectious symptoms beyond the shivering. Lab values from [facility] were grossly abnormal and are being repeated at this facility. Acute encephalopathy, POA, acute. Improved -Patient appeared to be minimally altered from baseline at the time of initial evaluation, back to baseline upon subsequent interaction -Likely secondary to hypercapnic respiratory failure due to malfunctioning Cpap and lack of supplemental oxygen in the setting of obesity hypoventilation syndrome -Supplemental O2 -NPPV overnight and as needed throughout the day Acute Kidney Injury, POA, acute on chronic. Active -Cr from [facility] upon transfer was 3.31 compared to 1.41 on day of prior discharge 04/30/17 -Patient was aggressively diuresed upon last admission with a net fluid balance of minus 10L -Likely secondary to pre renal volume depletion -Patient did have pyuria and mildly elevated WBC prior to DC on 04/30/17; patient was discharged on Ciprofloxacin; Urine culture no growth at 48 hours -Will begin with 1L bolus NS, patient arrived on IVF having received a prior bolus from [facility] -Avoid nephrotoxic medications -Will Repeat CMP Leukocytosis, POA, acute. Active -Per [facility] records patient arrived with a WBC >40 compared to 14 on 04/30/17 -Source unclear as patient denies respiratory symptoms beyond chronic SOB, dysuria, diarrhea(had solid formed BM since discharge), pain or heat from abrasions -Patient afebrile and mildly hypotensive -Will repeat CBC w/diff -Will transition to Ceftriaxone to cover for possible Cellulitis -Patient with a history of anaphylactic reaction with Penicillin, trial of Ceftriaxone uneventful so will continue this -Fosfomycin single dose to cover enterococcal UTI -Blood culture x4 Diabetes Mellitus with peripheral neuropathy, POA, chronic. Active -Will continue Lantus 40 QHS per discharge level -Lispro Medium dose correctional scale -A1c 7.1 1 week ago -Patient had been transitioned to a very low carbohydrate diet with prior hospitalization -Will change to diabetic constant carb diet to ensure prior diet was not a factor in decompensation Super Morbid Obesity, POA, chronic. Active -Bariatric bed -Jose lift -Multiple person assist for any turns, moves, lifts, or transfers -Nystatin powder under panniculus -Diphenhydramine 50 mg PO PRN for itching HTN, POA, Chronic. Active -Lisinopril 10 mg PO daily Depression and anxiety, POA, chronic. Active -Continue home Nortriptyline 50 mg PO hs -Continue home Temazepam 15 mg PO HS PRN GERD, POA, chronic. Active -Famotidine 20 PO BID Multiple bruises and abrasions, POA, acute. Active -Multiple bruises and abrasions appear to be at roughly similar stages of healing suggestive of a singular trauma consistent with history of fall -Ceftriaxone to cover potential Cellulitis Heart failure with preserved ejection fraction, POA, chronic. Active -ECHO 01/16/16 reveals EF 55%, no wall motion abnormalities, no valvular pathology, diastolic dysfunction -We will consider additional echo if she becomes decompensated; recommend follow -up echo outpatient Excoriated skin lesion, POA, chronic. Active -Patient chronically scratches herself -Is potential for seeding infection -Abx and blood cultures as above Disposition: Inpatient, anticipated length of stay > 2 midnights due to severity of condition and complexity of treatment plan. Pain Evaluation: Adequate Pain Control GI Prophylaxis: H2 abraham VTE Prophylaxis: Sub-Q Heparin (Unfractionated) Resuscitation Status: CPR: Attempt Resuscitation Attending Statement The patient was seen and examined together with Dr. Mai on 05/02/17 and I have added additional information to the note above. Aquilino Mai DO May 02, 2017 09:53 Jasmine Estrada DO May 03, 2017 14:39
--- NOTE | 2017-05-02 10:39 | DRSVH ---
PROCEDURE: X-RAY CHEST ONE VIEW, PORTABLE ([id number]) INDICATIONS: Chf TECHNIQUE: One view of the chest was acquired. COMPARISON: Outside Film, CR, XR CHEST 1VW, 04/26/2017, 11:02. [facility], CR, XR CHEST 1VW (PORTABLE), 04/27/2017, 5:26. FINDINGS: Surgical changes and devices: None. Lungs and pleura: No pleural effusions or pneumothorax. Focal opacity involves the right lower lobe otherwise lungs are clear. Mediastinum: Mediastinal contours appear normal. Heart size is normal. Bones and chest wall: No suspicious bony lesions. Overlying soft tissues appear unremarkable. IMPRESSION: Right lower lobe atelectasis versus aspiration or pneumonia. Correlate clinically. Dictated by: Lew AUGUST Interpreted: Hai Savage MD on 05/02/2017 at 10:09 Approved by: Hai Savage M.D. on 05/02/2017 at 10:38
[2017-05-02] MEDS: Mupirocin 2% 22 Gm Ointment TOPICAL SCH ×2 (15:17→22:24)
--- NOTE | 2017-05-02 15:34 | NUR ---
Social Work: Initial Assessment D: Per EMR review, pt is a 66 year old female admitted for Acute Kidney Injury/Dehydration/Hypnatremia. Pt is [facility] Blind/Disabled with [facility] supplement; pt has no LTC insurance or VA benefits. PCP is EZE Holbrook. NOK is Kisha Garcia, sister. Advanced directives info declined by pt as she just received this from case management at last admit. Pt was discharged on 04/30/2017 with [facility] for RN, PT. readmit score is high, 5/8. DOOR WORKER met with pt at bedside. Sw role explained and contact info provided. Pt confirms that she still lives with her sister in [place], she uses a FWW for ambulation indoors and a powerchair for external ambulation. Pt confirms [facility] was to come see her but she arrived back at the hospital before they could open. Pt has 150 hours of [facility] caregiving through [facility]. Pt states that she anticipates discharge back home with resumed [facility] and [facility] caregiving. Pt arrived via ambulance and pt anticipates discharge home via [facility] transport. t/c to Callie Trejo with [facility]; she confirms that they have the patient on caseload but have not yet opened her for services. Access provided. they will follow and expect to open with the patient when she discharges home. A: Pt who lives at home with her sister and uses a FWW P: Anticipate pt to return home with resumed [facility] for RN, PT and HERB caregiving via [facility] transportation. ELLIOT Palma
--- NOTE | 2017-05-02 15:57 | NUR ---
Faxed clinicals to [facility] per [employer]
--- NOTE | 2017-05-02 19:51 | NUR ---
Urine output/Activity Pt able to transfer from bed to BSC with fww and 2 person min assist. Pt up to chair with walker and one person assist for dinner. Pt tolerating activity well. Urine output was 1200ml during day shift.
[2017-05-02] MEDS: cefTRIAXone Inj 2,000 MG in Dextrose 5% Minibag Plus 50 ML IV SCH (22:24)
[2017-05-02] MEDS: Insulin GLARgine 100 Unit/mL Syringe SUBQ SCH (22:30)
[2017-05-03] VITALS (7 sets, daily range): BP systolic 111–139; BP diastolic 44–71; PULSE 75–88; RESP 14–22; O2SAT 94–96
[2017-05-03] MEDS: 0.9% Sodium Chloride 1,000 ML IV SCH ×3 (00:40→20:40)
[2017-05-03] MEDS: Heparin 5,000 Unit/mL Inj SUBQ SCH ×4 (01:03→23:55)
[2017-05-03 03:50] LABS: BASOPHILS % (AUTO) 0.2 % (0-3); EOSINOPHILS % (AUTO) 2.8 % (0-5); MONOCYTES % (AUTO) 8.8 % (4-12); Mean Corpuscular Hemoglobin 28.3 pg (27.0-35.0); Mean Corpuscular Volume 92.5 fL (81-100); Platelet Count 347 bil/L (150-400)
[2017-05-03 04:15] LABS: Magnesium 1.9 mg/dL (1.6-2.6); Phosphorus 4.9 mg/dL (2.5-4.9)
--- NOTE | 2017-05-03 06:21 | NUR ---
Bi-Pap/IV ON BIpap to sleep , reinforced IV , in difficult spot, Gave scheduled pain meds , allowed restful sleep, Pt had one episode of removing BiPap mask during sleep. Reposition in bed using overhead sling , tolerated being in sling for the amount of time it took to move her, 2 L O2 per NC while awake, Tele SR= 69
[2017-05-03] MEDS: Pantoprazole 20 mg ER24 Tablet PO SCH (06:47)
[2017-05-03] MEDS: Fluticasone 100 mCg Inhaler INHALATION SCH ×2 (08:38→22:01)
[2017-05-03] MEDS: Mupirocin 2% 22 Gm Ointment TOPICAL SCH ×2 (08:46→20:30)
[2017-05-03] MEDS: Nystatin 100,000 Unit/Gm 15 Gm Powder TOPICAL SCH ×2 (08:46→22:00)
--- NOTE | 2017-05-03 09:06 | NUR ---
Respiratory Pt assessed, found sitting up in bed eating breakfast, on 3 LNC. Sat 96%, HR 77, RR 18, BS diminished and clear. Pt denies dyspnea and is aware of Tx availability. Pt has VPAP in and was compliant last night.
--- NOTE | 2017-05-03 09:56 | PCM.PNMED ---
Subjective Date of Service May 03, 2017 Subjective Patient was significantly somnolent upon initial evaluation this AM, this has been her condition in the past when hypercarbic and she had been off NPPV for several hours at that time so the mask was re-applied. The patient was reexamined later in the morning and she was much more responsive and at her baseline mentation. Comprehensive ROS negative except as listed above. Exam Vital Signs Vital Sign - Last Date Time Temp Pulse Resp B/P Pulse Ox O2 Delivery O2 Flow Rate FiO2 05/03/17 08:19 36.0 75 14 111/44 94 Nasal Cannula 3.00 Intake and Output 05/02/17 05/02/17 05/03/17 Cumulative From/Thru 15:00 23:00 07:00 05/01/17 20:04 - 05/03/17 05:58 Intake Total 622 ml 2091 ml 3724 ml Output Total 1200 ml 500 ml 1700 ml Balance -578 ml 1591 ml 2024 ml Intake Oral 622 ml 380 ml 1002 ml IV Total 1711 ml 2722 ml Output Urine Total 1200 ml 500 ml 1700 ml # Bowel Movements 1 1 Exam Gen: A/O x3, morbidly obese woman in NAD, Neck: Large Bull neck, difficult to determine JVD given habitus, supple, non tender, no lymphadenopathy HEENT: PERRL, EOMI, no scleral icterus, no conjunctival pallor, mucous membranes moist Skin: multiple bruises and abrasions, all appear to be in similar stages of healing implying a singular event, large eschar over right knee with some surrounding erythema and bandage in place appears unchanged from prior evaluation, excoriated areas on the upper trunk and helix of ears appearing in areas that are accessible for itching CV: very distant heart tones, RRR, 2/6 systolic ejection murmur, no rubs or gallops Lungs: Very distant lung sounds, CTA BL as best as can be determined Abdomen: Soft, very obese, non tender, cannot appreciate bowel tones complicated by habitus, erythema and white exudate under very large pendulous panniculus Extr: BL LE mild non pitting edema, as above many abrasion in similar stages of healing Neuro: CN 2-12 grossly intact, no focal neurologic deficit Psych: appropriate mood and affect IVs and Medications IV Fluids 50 ml NS delivered with IV medications Medications Reviewed: Medications were reviewed in detail Lab and Diagnostics Item Value Date Time Red Blood Count 3.71 mil/mm3 L 05/03/17324 Mean Corpuscular Volume 92.5 fL 05/03/17324 Mean Corpuscular Hemoglobin 28.3 pg 05/03/17324 Mean Corpuscular Hemoglobin Concent 30.6 % L 05/03/17324 Red Cell Distribution Width 15.2 % 05/03/17324 Neutrophils (%) (Auto) 75.0 % H 05/03/17324 Lymphocytes (%) (Auto) 12.7 % L 05/03/17324 Eosinophils (%) (Auto) 2.8 % 05/03/17324 Basophils (%) (Auto) 0.2 % 05/03/17324 Monocytes (%) (Auto) 8.8 % 05/03/17324 Estimat Glomerular Filtration Rate 33 mL/min 05/03/17324 Calcium Level 8.1 mg/dL L 05/03/17324 Phosphorus Level 4.9 mg/dL 05/03/17324 Magnesium Level 1.9 mg/dL 05/03/17324 Total Bilirubin 0.3 mg/dL 05/03/17324 Aspartate Amino Transf (AST/SGOT) 23 U/L 05/03/17324 Alanine Aminotransferase (ALT/SGPT) 16 U/L 05/03/17324 Alkaline Phosphatase 92 U/L 05/03/17324 Total Protein 6.1 g/dL L 05/03/17324 Albumin 2.9 g/dL L 05/03/17324 Procalcitonin 1.58 ng/mL H 05/03/17324 Result Diagram: 05/03/1732405/03/17324 Microbiology Previous Urine culture grew presumptive enterococcus Blood culture negative at 24 hours Wound culture no organisms or polys seen Assessment & Plan Adilia Garcia is a 66 year old Super morbid obese woman who was recently discharged from [facility] having been treated for a CHF exacerbation presents with altered mental status most likely secondary to chronic hypercapnic respiratory failure, JAE with hyperkalemia, and cellulitis of the LE. Acute encephalopathy, POA, acute. Improved -Patient appeared to be minimally altered from baseline at the time of initial evaluation, back to baseline upon subsequent interaction -Likely secondary to hypercapnic respiratory failure due to malfunctioning Cpap and lack of supplemental oxygen in the setting of obesity hypoventilation syndrome -Supplemental O2 -NPPV overnight and as needed throughout the day -Patient would likely benefit from Trilogy at home ventilation Chronic Hypercapnic respiratory failure, POA. Active -Secondary to obesity hypoventilation syndrome -Concurrent likely DAWNA -Patient's mental status decompensates after 2-3 hours off NPPV -Patient requires nocturnal and daytime PRN volume ventilation. Bipap would be insufficient due to the severity of her OHS which is the primary cause of her CRF with hypercapnia -Patient would benefit greatly from mouthpiece volume ventilation for PRN respiratory assistance Acute Kidney Injury, POA, acute on chronic. Active -Cr from [facility] upon transfer was 3.31 compared to 1.41 on day of prior discharge 04/30/17 -Cr downtrending -Adequate urine output -Patient was aggressively diuresed upon last admission with a net fluid balance of minus 10L -Likely secondary to pre renal volume depletion -Patient did have pyuria and mildly elevated WBC prior to DC on 04/30/17; patient was discharged on Ciprofloxacin; Urine culture no growth at 48 hours -Will begin with 1L bolus NS, will continue judicious use of IVF so as not to fluid overload the patient -Avoid nephrotoxic medications -Continue to track CMP Cellulitis, POA, acute. Active -Per [facility] records patient arrived with a WBC >40 compared to 14 on 04/30/17 -Patient afebrile and mildly hypotensive upon admission -Ceftriaxone 2g q24, patient with tenuous IV access, may convert to doxycycline PO if this fails and upon discharge -Patient with a history of anaphylactic reaction with Penicillin, trial of Ceftriaxone uneventful so will continue this -Blood culture x4 negative Urinary tract infection, POA, acute. Active -Patient given single dose of fosfomycin -Patient denies dysuria -Will continue to monitor urine output and infectious indicators Diabetes Mellitus with peripheral neuropathy, POA, chronic. Active -Will continue Lantus 40 QHS per discharge level -Lispro Medium dose correctional scale -A1c 7.1 1 week ago -Patient had been transitioned to a very low carbohydrate diet with prior hospitalization -Will change to diabetic constant carb diet to ensure prior diet was not a factor in decompensation Super Morbid Obesity, POA, chronic. Active -Bariatric bed -Jose lift -Multiple person assist for any turns, moves, lifts, or transfers -Nystatin powder under panniculus -Diphenhydramine 50 mg PO PRN for itching HTN, POA, Chronic. Active -Lisinopril 10 mg PO daily Depression and anxiety, POA, chronic. Active -Continue home Nortriptyline 50 mg PO hs -Continue home Temazepam 15 mg PO HS PRN GERD, POA, chronic. Active -Famotidine 20 PO BID Multiple bruises and abrasions, POA, acute. Active -Multiple bruises and abrasions appear to be at roughly similar stages of healing suggestive of a singular trauma consistent with history of fall -Ceftriaxone to cover potential Cellulitis -Bactroban applied to wound -Wound care consult Heart failure with preserved ejection fraction, POA, chronic. Active -ECHO 01/16/16 reveals EF 55%, no wall motion abnormalities, no valvular pathology, diastolic dysfunction -We will consider additional echo if she becomes decompensated; recommend follow -up echo outpatient Excoriated skin lesion, POA, chronic. Active -Patient chronically scratches herself -Is potential for seeding infection -Abx and blood cultures as above Disposition: Patient requires nocturnal and daytime PRN volume ventilation. BiPap insufficient due to severity of her underling obesity hypoventilation syndrome which is the primary cause of her chronic hypercapnic respiratory failure. Patient will likely be able to DC home in the next 1-2 days depending upon recovery of renal function. Pain Evaluation: Adequate Pain Control GI Prophylaxis: H2 abraham VTE Prophylaxis: Sub-Q Heparin (Unfractionated) Resuscitation Status: CPR: Attempt Resuscitation Attending Statement The patient was seen and examined together with Dr. Mai on 05/04/17 and I have added additional information to the note above. Aquilino Mai DO May 03, 2017 09:56 Jasmine Estrada DO May 04, 2017 12:53
--- NOTE | 2017-05-03 10:56 | NUR ---
Respiratory/IV/IV fluids During initial assessment pt was on 3L NC, she was very sleepy and it was difficult to arouse her. RR 14 sats low 90s HR 76. Pt was placed back on her cpap machine while her morning assessment was performed. She appeared to rouse and after approximately 10-15 minutes she was placed back on NC, boosted up in bed and was able to eat her breakfast and take her PO medications. Pt continues to c/o pain at her IV site. Site appears asymptomatic, flushes well, pt does not complain of pain with flush. Attempted to place IV in left hand with no success. Called IV therapy who recommended dc'ing existing IV and they will place a new one. IV fluids non-admined per verbal order from MD to dc.
--- NOTE | 2017-05-03 15:39 | NUR ---
spiriutal care: pt request conversational visit. lengthy visit including pt's personal history and affiliation with [employer]. she shared her support/devotion to older sister, family history, memories pertinent to her sense of meaning/purpose. Pt appreciative of prayer
--- NOTE | 2017-05-03 16:29 | NUR ---
Gabapentin Pt refused administration of afternoon Gabapentin. States that "doesn't work for me anymore"
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
[2017-05-03] MEDS: Insulin GLARgine 100 Unit/mL Syringe SUBQ SCH (21:59)
[2017-05-03] MEDS: cefTRIAXone Inj 2,000 MG in Dextrose 5% Minibag Plus 50 ML IV SCH (22:00)
[2017-05-04 02:14] VITALS: BP 100/56; PULSE 79; RESP 22
[2017-05-04 02:46] LABS: BASOPHILS % (AUTO) 0.4 % (0-3); EOSINOPHILS % (AUTO) 2.9 % (0-5); Mean Corpuscular Hemoglobin 27.8 pg (27.0-35.0); Mean Corpuscular Volume 91.8 fL (81-100); NEUTROPHILS % (AUTO) 70.6 % (40-74); Platelet Count 319 bil/L (150-400)
[2017-05-04 03:18] LABS: Magnesium 1.8 mg/dL (1.6-2.6); Phosphorus 3.7 mg/dL (2.5-4.9)
[2017-05-04 05:34] VITALS: PULSE 79
[2017-05-04] MEDS: 0.9% Sodium Chloride 1,000 ML IV SCH (06:40)
--- NOTE | 2017-05-04 07:30 | NUR ---
BIPAP/AM Labs Pt continually took off BiPAP during the shift to eat ice chips or drink water. Pt would either use the call light and let staff know that she required help to put the BiPAP or would not notify and would desat. Pt had to be reminded of the need to be compliant with supplemental oxygen and BiPAP. Pt's BUN and Creatinine continue to trend down. WBC count is now WNL.
[2017-05-04 08:01] VITALS: BP 129/53; PULSE 79; RESP 16; O2SAT 91
[2017-05-04] MEDS: Pantoprazole 20 mg ER24 Tablet PO SCH (08:14)
[2017-05-04] MEDS: Fluticasone 100 mCg Inhaler INHALATION SCH (08:14)
[2017-05-04] MEDS: Heparin 5,000 Unit/mL Inj SUBQ SCH (08:16)
[2017-05-04] MEDS: Mupirocin 2% 22 Gm Ointment TOPICAL SCH (08:21)
[2017-05-04] MEDS: Nystatin 100,000 Unit/Gm 15 Gm Powder TOPICAL SCH (08:21)
--- NOTE | 2017-05-04 13:48 | PCM.DIMED ---
Aquilino Mai DO 05/04/17 1348: Discharge Instructions Date of Service May 04, 2017 Dates of Hospitalization May 01, 2017 at 16:48 Discharge Diagnosis Discharge Diagnosis Acute encephalopathy, POA, acute. Improved Chronic Hypercapnic respiratory failure, POA. Active Acute Kidney Injury, POA, acute on chronic. Active Cellulitis, POA, acute. Active Urinary tract infection, POA, acute. Active Diabetes Mellitus with peripheral neuropathy, POA, chronic. Active Super Morbid Obesity, POA, chronic. Active HTN, POA, Chronic. Active Depression and anxiety, POA, chronic. Active GERD, POA, chronic. Active Multiple bruises and abrasions, POA, acute. Active Heart failure with preserved ejection fraction, POA, chronic. Active Excoriated skin lesion, POA, chronic. Active Diet Discharge Diet: Diabetic (Continue to stick with the diet of very low carbohydrates recommended on your previous discharge) Activity Discharge Activity: Home Health Phyical Therapy (We will continue to have you seen by a physcial therapist at home.) Call your provider Call your provider for: Fever or Chills, Shortness of breath, Bleeding, Chest pain, Vomitting, Excessive diarrhea, Weakness (unilateral) Patient Instructions Patient Instructions It is very important that you use an assisted breathing machine, you appear to become sleepy and confused with even a few hours off of the machine. I have ordered for you to be evaluated by a company that makes a different kind of breathing machine that will likely work much better for you. I realize it can be a pain to set up the mask every time that you need breathing help, this machine comes equipped with a mouth piece that you can just suck on for when you just need a little boost during the day, and it also has a very good mask for you to wear during the night. The diet we recommended on your previous discharge remains very important for you. We have made progress in getting your insulin needs lower, but you could easily slide back into bad habits and undo the progress we have made. Follow-up plan Please follow up with your primary care provider Sheyla Shaikh within 2 weeks for further evaluation. We have arranged home health physical therapy to come see you in your house to continue with your physical therapy once you get out of here. Follow-up Provider: Sheyla Rosario Follow-up with PCP in: 2 weeks Jasmine Estrada DO 05/04/17 1414: Discharge Instructions Attending's Statement The patient was seen and examined together with Dr. Mai on 05/04/17 and I agree with the history, exam and plan as outlined in the note above. Aquilino Mai DO May 04, 2017 13:48 Jasmine Estrada DO May 04, 2017 14:14
[2017-05-04] MEDS ORDERED: DOXY100T2 PO (13:50)
--- NOTE | 2017-05-04 15:19 | NUR ---
Discharge Pt discharged to her home with transportation by cabulance. Pt's IV's dc'd intact, telemetry removed and tech notified. Pt's discharge instructions, new medications and follow up appointments were reviewed. All questions were answered and pt voiced understanding. All belongings were gathered to be transported home with pt. Pt was transferred off unit by cabulance catshovel driver.
--- NOTE | 2017-05-04 15:34 | NUR ---
Social Work Note: Discharge Data& Assessment: Per pt is medically ready to discharge home via wheelchair van with [facility] and Trilogy through [facility]. Adilia Garcia is a 66 year old female admitted on 05/01/2017 for acute kidney injury and dehydration. Per pt is medically improved and ready to discharge. Pt requires wheelchair van. [employer] unable to transport bariatric pt due to wheelchair limits in their van. Jefry from [facility] is able to transport pt this afternoon and does have a contract with Medicaid for coverage. confirmed pt was brought to [facility] via EMS prior to being transferred to [facility]. D/C paperwork faxed to pt CM at [facility]. Neela from [facility] notified of pt discharge and he picked up F2F. Steven, respiratory therapist notified of pt discharge and will meet pt at home in [place] to set up Trilogy Machine. Pt sister Kisha notified of pt discharge and is agreeable to plan. Pt and pt sister deny any other needs. No other discharge needs identified. All updated and agreeable to plan. Plan: Per pt is medically ready to discharge home via wheelchair van covered by Medicaid with [facility] and Trilogy through [facility]. Pt and pt sister deny any other needs. No other discharge needs identified. All updated and agreeable to plan. ELLIOT Newell
--- NOTE | 2017-05-04 16:23 | PCM.DC.MED ---
Discharge Summary Date of Service May 04, 2017 Dates of Hospitalization Date of Hospital Admission May 01, 2017 at 16:48 Date of Discharge: May 04, 2017 Providers: Admitting Physician: Jasmine Estrada DO Primary Care Physician: Sheyla Rosario Attending Physician: Jasmine Estrada DO Diagnosis at Time of Discharge Diagnosis at Time of Discharge Acute encephalopathy, POA, acute. Improved Chronic Hypercapnic respiratory failure, POA. Active Acute Kidney Injury, POA, acute on chronic. Active Cellulitis, POA, acute. Active Urinary tract infection, POA, acute. Active Diabetes Mellitus with peripheral neuropathy, POA, chronic. Active Super Morbid Obesity, POA, chronic. Active HTN, POA, Chronic. Active Depression and anxiety, POA, chronic. Active GERD, POA, chronic. Active Multiple bruises and abrasions, POA, acute. Active Heart failure with preserved ejection fraction, POA, chronic. Active Excoriated skin lesion, POA, chronic. Active Procedures XRay, CTs & MRIs X-RAY CHEST ONE VIEW, PORTABLE ([id number]) IMPRESSION: Right lower lobe atelectasis versus aspiration or pneumonia. Correlate clinically. Dictated by: Lew Garcia RRA Interpreted: Hai Savage MD on 05/02/2017 at 10:09 Approved by: Hai Savage M.D. on 05/02/2017 at 10:38 . Brief History Adilia Garcia is a 66 year old super morbid obese woman with a PMH of DM2, HTN, obesity hypoventilation syndrome, osteo-arthritis, GERD, depression and anxiety who was recently discharged from [facility] following a 5 day stay where she was treated for a CHF exacerbation which lead to hypercarbic respiratory failure via robust diuresis. She reports that last evening her home Cpap was not functioning properly, and thus she was unable to sleep, she was awake until about 5 am and reports shivering in that interim. In the morning her sister found her acutely confused similar to her presentation when she arrived to [facility] on 04/26 and was hypercarbic. The patient was taken to [facility] where laboratory evaluation revealed gross leukocytosis, hyponatremia, hypochloremia, and hypotension with acutely elevated Cr more than double her value prior to discharge from this facility. She was transferred back to [facility] for further evaluation. The patient denies SOB beyond her baseline, productive cough, fevers (though as above she was shivering prior to last evening), denies dysuria, diarrhea, abdominal pain, pain or heat from her multiple abrasions from prior ground level fall. She states that she feels "About 90% myself" in terms of mentation, but otherwise has no complaints. Upon arrival that patient was found to be afebrile, borderline hypotensive, and very minimally altered similar to her self assessment of cognition. Hospital Course Adilia Garcia is a 66 year old Super morbid obese woman who was recently discharged from [facility] having been treated for a CHF exacerbation presents with altered mental status most likely secondary to chronic hypercapnic respiratory failure, JAE with hyperkalemia, and cellulitis of the LE. Patient was subsequently treated for cellulitis which was the likely precipitant of her decompensation and need to return to the hospital. The patient responded well to IV Ceftriaxone and gentle hydration, and made steady incremental progress such that on the day of admission she was more or less at her baseline. The patient has been discharged home with a plan for continued home health physical therapy and evaluation by a respiratory therapist for potential initiation of a Trilogy home volume ventilation system which would likely be of great benefit to the patient. For full hospital course see below Acute encephalopathy, POA, acute. Improved -Patient appeared to be minimally altered from baseline at the time of initial evaluation, back to baseline upon subsequent interaction -Likely secondary to hypercapnic respiratory failure due to malfunctioning Cpap and lack of supplemental oxygen in the setting of obesity hypoventilation syndrome -Supplemental O2 -NPPV overnight and as needed throughout the day -Patient would likely benefit from Trilogy at home ventilation Chronic Hypercapnic respiratory failure, POA. Active -Secondary to obesity hypoventilation syndrome -Concurrent likely DAWNA -Patient's mental status decompensates after 2-3 hours off NPPV -Patient requires nocturnal and daytime PRN volume ventilation. Bipap would be insufficient due to the severity of her OHS which is the primary cause of her CRF with hypercapnia -Patient would benefit greatly from mouthpiece volume ventilation for PRN respiratory assistance Acute Kidney Injury, POA, acute on chronic. Active -Cr from [facility] upon transfer was 3.31 compared to 1.41 on day of prior discharge 04/30/17 -Cr downtrending and approaching baseline at the time of discharge -Adequate urine output -Patient was aggressively diuresed upon last admission with a net fluid balance of minus 10L -Likely secondary to pre renal volume depletion with concurrent infection -Patient did have pyuria and mildly elevated WBC prior to DC on 04/30/17; patient was discharged on Ciprofloxacin; Urine culture no growth at 48 hours -Will begin with 1L bolus NS, will continue judicious use of IVF so as not to fluid overload the patient -Avoid nephrotoxic medications -Continue to track CMP Cellulitis, POA, acute. Active -Per [facility] records patient arrived with a WBC >40 compared to 14 on 04/30/17 -Patient afebrile and mildly hypotensive upon admission -Ceftriaxone 2g q24, patient with tenuous IV access, may convert to doxycycline PO if this fails and upon discharge -Patient with a history of anaphylactic reaction with Penicillin, trial of Ceftriaxone uneventful so will continue this -Blood culture x4 negative -Patient discharged on continued course of Doxycycline Urinary tract infection, POA, acute. Active -Patient given single dose of fosfomycin -Patient denies dysuria -Will continue to monitor urine output and infectious indicators Diabetes Mellitus with peripheral neuropathy, POA, chronic. Active -Will continue Lantus 40 QHS per discharge level -Lispro Medium dose correctional scale -A1c 7.1 1 week ago -Patient had been transitioned to a very low carbohydrate diet with prior hospitalization -Will change to diabetic constant carb diet to ensure prior diet was not a factor in decompensation Super Morbid Obesity, POA, chronic. Active -Bariatric bed -Jose lift -Multiple person assist for any turns, moves, lifts, or transfers -Nystatin powder under panniculus -Diphenhydramine 50 mg PO PRN for itching HTN, POA, Chronic. Active -Lisinopril 10 mg PO daily Depression and anxiety, POA, chronic. Active -Continue home Nortriptyline 50 mg PO hs -Continue home Temazepam 15 mg PO HS PRN GERD, POA, chronic. Active -Famotidine 20 PO BID Multiple bruises and abrasions, POA, acute. Active -Multiple bruises and abrasions appear to be at roughly similar stages of healing suggestive of a singular trauma consistent with history of fall -Ceftriaxone to cover potential Cellulitis -Bactroban applied to wound -Wound care consult Heart failure with preserved ejection fraction, POA, chronic. Active -ECHO 01/16/16 reveals EF 55%, no wall motion abnormalities, no valvular pathology, diastolic dysfunction -We will consider additional echo if she becomes decompensated; recommend follow -up echo outpatient Excoriated skin lesion, POA, chronic. Active -Patient chronically scratches herself -Is potential for seeding infection -Abx and blood cultures as above Exam Vital Signs (Last) Date Time Temp Pulse Resp B/P Pulse Ox O2 Delivery O2 Flow Rate FiO2 05/04/17 08:01 Supplement Oxygen CPAP/BIPAP 05/04/17 08:01 36.5 79 16 129/53 91 4.00 05/04/17 02:14 90 Exam Gen: A/O x3, morbidly obese woman in NAD, Neck: Large Bull neck, difficult to determine JVD given habitus, supple, non tender, no lymphadenopathy HEENT: PERRL, EOMI, no scleral icterus, no conjunctival pallor, mucous membranes moist Skin: multiple bruises and abrasions, all appear to be in similar stages of healing implying a singular event, large eschar over right knee with some surrounding erythema and bandage in place appears improved from prior evaluation , excoriated areas on the upper trunk and helix of ears appearing in areas that are accessible for itching CV: very distant heart tones, RRR, 2/6 systolic ejection murmur, no rubs or gallops Lungs: Very distant lung sounds, CTA BL as best as can be determined Abdomen: Soft, very obese, non tender, cannot appreciate bowel tones complicated by habitus, erythema and white exudate under very large pendulous panniculus Extr: BL LE mild non pitting edema, as above many abrasion in similar stages of healing Neuro: CN 2-12 grossly intact, no focal neurologic deficit Psych: appropriate mood and affect Test 05/01/17 17:50 05/04/17 02:15 Lactic Acid Level 1.2mmol/L (0.4-2.0) White Blood Count 8.3th/mm3 (3.8-10.1) Red Blood Count 3.78mil/mm3 (3.90-5.20) Hemoglobin 10.5g/dL (12.0-15.6) Hematocrit 34.7% (35.0-46.0) Mean Corpuscular Volume 91.8fL (81-100) Mean Corpuscular Hemoglobin 27.8pg (27.0-35.0) Mean Corpuscular Hemoglobin Concent 30.3% (32.0-37.0) Red Cell Distribution Width 15.0% (12.3-15.4) Platelet Count 319bil/L (150-400) Neutrophils (%) (Auto) 70.6% (40-74) Lymphocytes (%) (Auto) 15.5% (14-46) Monocytes (%) (Auto) 10.0% (4-12) Eosinophils (%) (Auto) 2.9% (0-5) Basophils (%) (Auto) 0.4% (0-3) Sodium Level 134mEq/L (134-144) Potassium Level 4.2mEq/L (3.5-5.2) Chloride Level 91mEq/L (97-108) Carbon Dioxide Level 30mmol/L (18-29) Blood Urea Nitrogen 53mg/dL (8-27) Creatinine 1.34mg/dL (0.57-1.00) Estimat Glomerular Filtration Rate 57mL/min (>59) Glucose Level 218mg/dL (60-99) Calcium Level 8.7mg/dL (8.5-10.1) Phosphorus Level 3.7mg/dL (2.5-4.9) Magnesium Level 1.8mg/dL (1.6-2.6) Total Bilirubin 0.2mg/dL (0.0-1.2) Aspartate Amino Transf (AST/SGOT) 16U/L (0-50) Alanine Aminotransferase (ALT/SGPT) 5U/L (0-32) Alkaline Phosphatase 91U/L (25-165) Total Protein 6.6g/dL (6.4-8.4) Albumin 3.0g/dL (3.4-5.0) Procalcitonin 0.76ng/mL (0.00-0.08) Microbiology Results Previous Urine culture grew presumptive enterococcus Blood culture negative at 24 hours Wound culture no organisms or polys seen Discharge Medications Discharge Medications Atorvastatin (Lipitor) 20 Mg Tablet 20 MG PO HS (Reported) Doxycycline Hyclate (Doxycycline Hyclate) 100 Mg Tablet 100 MG PO BID Prescribed by: DELICIA MAI DO Gabapentin (Gabapentin) 600 Mg Tablet 600 MG PO TID (Reported) Insulin Glargine (Lantus U100 Insulin Vial) 100 Unit/Ml Vial 40 UNIT SUBQ HS Prescribed by: DELICIA MAI DO Insulin Lispro (HumaLOG U100 Insulin Pen) 100 Unit/1 Ml Insuln.pen 1-25 UNIT SUBQ TIDWM (Reported) Blood Sugar Lispro Correction <151 0 units 151-175 1 unit 176-200 2 units 201-225 3 units 226-250 4 units 251-275 5 units 276-300 6 units 301-325 7 units 326-350 8 units 351-375 9 units 376-400 10 units >400 12 units Check blood sugars before meals and at bedtime. Use correction factor only before meals. Lisinopril (Lisinopril) 10 Mg Tablet 10 MG PO DAILY (Reported) Montelukast (Montelukast) 10 Mg Tablet 10 MG PO DAILY (Reported) Nortriptyline (Nortriptyline) 50 Mg Capsule 50 MG PO HS (Reported) Omeprazole (Omeprazole) 20 Mg Capsule.dr 20 MG PO DAILY (Reported) Temazepam (Temazepam) 15 Mg Capsule 15 MG PO HS (Reported) As needed ([trave sick chew]) 25 MG PO BID PRN PRN For Dizziness (Reported) Albuterol HFA (Proair HFA) 8.5 Gm Hfa.aer.ad 2 PUFFS INHALATION Q4H PRN PRN For Shortness of Breath (Reported) Beclomethasone Dipropionate (Qvar) 8.7 Gm Aer.w.adap 8.7 GM IH DAILY PRN PRN For Shortness of Breath (Reported) Docusate Sodium (Docusate Sodium) 250 Mg Capsule 250 MG PO BID PRN PRN For Constipation (Reported) Fluticasone Propionate (Fluticasone Propionate) 50 Mcg/Actuation [place].susp 15.8 ML NS DAILY PRN PRN sniffles (Reported) diphenhydrAMINE HCl (Benadryl) 25 Mg Capsule 50 MG PO DAILY PRN PRN For Itching (Reported) Followup Plan Disposition: Home with home health physical therapy Follow-up plan Please follow up with your primary care provider Sheyla Shaikh within 2 weeks for further evaluation. We have arranged home health physical therapy to come see you in your house to continue with your physical therapy once you get out of here. Discharge Diet: Diabetic (Continue to stick with the diet of very low carbohydrates recommended on your previous discharge) Discharge Activity: Home Health Phyical Therapy (We will continue to have you seen by a physcial therapist at home.) Patient Instructions It is very important that you use an assisted breathing machine, you appear to become sleepy and confused with even a few hours off of the machine. I have ordered for you to be evaluated by a company that makes a different kind of breathing machine that will likely work much better for you. I realize it can be a pain to set up the mask every time that you need breathing help, this machine comes equipped with a mouth piece that you can just suck on for when you just need a little boost during the day, and it also has a very good mask for you to wear during the night. The diet we recommended on your previous discharge remains very important for you. We have made progress in getting your insulin needs lower, but you could easily slide back into bad habits and undo the progress we have made. Follow-up Provider: Sheyla Rosario Follow-up with PCP in: 2 weeks Time spent Time spent coordinating discharge and counseling the patient > 35 minutes Attending Statement The patient was seen and examined together with Dr. Mai on 05/04/17 and I agree with the history, exam and plan as outlined in the note above. copies to: Sheyla Rosario David E DO May 04, 2017 16:23 Jasmine Estrada DO May 04, 2017 19:00
== END 2017-05-04 15:19 | disposition home health service (06) | DRG 71 ==
LOC: PCC 16:48
PROVIDERS: ADMIT Neuromusculoskeletal Medicine & OMM; ATTEND Neuromusculoskeletal Medicine & OMM
DX: G93.40 Encephalopathy, unspecified (principal); E66.2 Morbid (severe) obesity with alveolar hypoventilation; N17.9 Acute kidney failure, unspecified; J96.12 Chronic respiratory failure with hypercapnia; Z68.43 Body mass index [BMI] 50.0-59.9, adult; E11.21 Type 2 diabetes mellitus with diabetic nephropathy; I50.32 Chronic diastolic (congestive) heart failure; L03.115 Cellulitis of right lower limb; N39.0 Urinary tract infection, site not specified; Z79.4 Long term (current) use of insulin; Z79.82 Long term (current) use of aspirin; Z87.891 Personal history of nicotine dependence; D72.829 Elevated white blood cell count, unspecified; I10 Essential (primary) hypertension; F32.9 Major depressive disorder, single episode, unspecified; F41.9 Anxiety disorder, unspecified; K21.9 Gastro-esophageal reflux disease without esophagitis; Z91.81 History of falling; S80.211A Abrasion, right knee, initial encounter